=== PATIENT | female | born 1995 | race Caucasian/White ===

== ENCOUNTER 2017-06-04 10:02 | Emergency (ER) | payer BC ==
[2017-06-04] MEDS ORDERED: ONDANSETRON 4 MG/2 ML VIAL IVP STA (10:27)
[2017-06-04] MEDS ORDERED: ACETAMINOPHEN IV (For NPO) 1,000 MG in EMPTY BAG 1 BAG IVPB STA (10:27)
[2017-06-04] MEDS ORDERED: HYDROmorphone 0.5 MG/0.5 ML SYRINGE IVP STA (10:27)
[2017-06-04] MEDS ORDERED: SODIUM CHLORIDE 0.9% 1,000 ML IV STA ×2 (10:27)
--- NOTE | 2017-06-04 10:34 | ED ---
General Adult HPI - General Chief complaint: Abdominal Pain Stated complaint: CHEST PAIN Time Seen by Provider: 06/04/17 10:21 Source: patient, family, RN notes reviewed Mode of arrival: wheelchair Limitations: no limitations - History of Present Illness Initial comments: Patient 21-year-old female who presents emergency room today with chief complaint of right-sided abdominal pain radiating up into the chest. She states it started last night approximately 7 PM. Patient does admit that it is not better or worse with anything. Patient states that pain was worse this morning went to urgent care who sent her here to the emergency room. She denies any other complaints or symptoms. Patient denies any recent shortness of breath, back pain, numbness or tingling, dysuria or hematuria, constipation or diarrhea, headaches or visual changes, or any other complaints. - Related Data Previous Rx's Medication Instructions Recorded Ibuprofen [Motrin] 800 mg PO Q6HR #30 tab 06/04/17 Orphenadrine [Norflex] 100 mg PO Q12H #20 tablet.er 06/04/17 Allergies Allergy/AdvReac Type Severity Reaction Status Date / Time amoxicillin Allergy Anaphylaxis Verified 06/04/17 12:26 egg Allergy Nausea & Verified 06/04/17 12:26 Vomiting Penicillins Allergy Anaphylaxis Verified 06/04/17 12:26 Review of Systems ROS Statement: Those systems with pertinent positive or pertinent negative responses have been documented in the HPI. ROS Other: All systems not noted in ROS Statement are negative. Past Medical History Past Medical History: No Reported History History of Any Multi-Drug Resistant Organisms: None Reported Past Surgical History: No Surgical Hx Reported Past Psychological History: No Psychological Hx Reported Smoking Status: Current every day smoker Past Alcohol Use History: None Reported Past Drug Use History: None Reported General Exam - General Exam Comments Initial Comments: General: The patient is awake and alert, in mild distress Eye: Pupils are equal, round and reactive to light, extra-ocular movements are intact. No nystagmus. There is normal conjunctiva bilaterally. No signs of icterus. Ears, nose, mouth and throat: There are moist mucous membranes and no oral lesions. Neck: The neck is supple, there is no tenderness or JVD. Cardiovascular: There is a regular rate and rhythm. No murmur, rub or gallop is appreciated. Respiratory: Lungs are clear to auscultation, respirations are non-labored, breath sounds are equal. No wheezes, stridor, rales, or rhonchi. Gastrointestinal: Normal appearance of the abdomen. Normal bowel sounds. Abdomen soft on palpation. She does have tenderness right upper quadrant. No rebound tenderness. No guarding. No CVA tenderness. Musculoskeletal: Normal ROM, no tenderness. Strength 5/5. Sensation intact. Pulses equal bilaterally 2+. Neurological: A&O x 3. CN II-XII intact, There are no obvious motor or sensory deficits. Coordination appears grossly intact. Speech is normal. Skin: Skin is warm and dry and no rashes or lesions are noted. Psychiatric: Cooperative, appropriate mood & affect, normal judgment. Limitations: no limitations Course Vital Signs 06/04/17 06/04/17 10:13 13:12 Temperature 100.2 F H 97.9 F Pulse Rate 100 62 Respiratory 20 16 Rate Blood Pressure 128/81 105/51 O2 Sat by Pulse 96 95 Oximetry EKG Findings - EKG Comments: EKG Findings:: EKG performed at 1111: Shows normal sinus rhythm at 82 bpm. IN interval 132. QRS 86. QT/QTC forced 412/481. No acute ST changes. Medical Decision Making - Medical Decision Making [facility] and seen by attending physician Dr. Mcbride. Patient's labs been reviewed are unremarkable. Negative d-dimer. Negative cardiac enzymes. Patient's ultrasound of the upper quadrant shows no evidence of cholelithiasis or cholecystitis. Patient's chest x-rays negative. Patient's pain is reproduced movements and palpation. No other symptoms other than pain. Was discussed about possible musculoskeletal. Patient given possible x-ray here in the emergency room feeling well and would like to be discharged home at this time. - Lab Data Result diagrams: 06/04/17 10:54 06/04/17 10:54 Lab Results 06/04/17 06/04/17 06/04/17 Range/Units 10:54 10:54 10:54 WBC 9.5 (3.8-10.6) k/uL RBC 5.09 (3.80-5.40) m/uL Hgb 15.8 (11.4-16.0) gm/dL Hct 46.0 (34.0-46.0) % MCV 90.3 (80.0-100.0) fL MCH 31.0 (25.0-35.0) pg MCHC 34.3 (31.0-37.0) g/dL RDW 13.0 (11.5-15.5) % Plt Count 171 (150-450) k/uL Neutrophils % 77 % Lymphocytes % 13 % Monocytes % 6 % Eosinophils % 2 % Basophils % 0 % Neutrophils # 7.3 (1.3-7.7) k/uL Lymphocytes # 1.3 (1.0-4.8) k/uL Monocytes # 0.5 (0-1.0) k/uL Eosinophils # 0.2 (0-0.7) k/uL Basophils # 0.0 (0-0.2) k/uL PT 10.4 (9.0-12.0) sec INR 1.0 (<1.2) APTT 28.1 (22.0-30.0) sec D-Dimer (<0.60) mg/L FEU Sodium 141 (137-145) mmol/L Potassium 4.2 (3.5-5.1) mmol/L Chloride 106 (98-107) mmol/L Carbon Dioxide 25 (22-30) mmol/L Anion Gap 10 mmol/L BUN 12 (7-17) mg/dL Creatinine 0.79 (0.52-1.04) mg/dL Est GFR (MDRD) Af Amer >60 (>60 ml/min/1.73 sqM) Est GFR (MDRD) Non-Af >60 (>60 ml/min/1.73 sqM) Glucose 95 (74-99) mg/dL Plasma Lactic Acid Serafin (0.7-2.0) mmol/L Calcium 9.5 (8.4-10.2) mg/dL Total Bilirubin 0.7 (0.2-1.3) mg/dL AST 20 (14-36) U/L ALT 36 (9-52) U/L Alkaline Phosphatase 51 (38-126) U/L Troponin I (0.000-0.034) ng/mL Total Protein 7.0 (6.3-8.2) g/dL Albumin 4.2 (3.5-5.0) g/dL Amylase <30 L (30-110) U/L Lipase 72 (23-300) U/L Urine Color Urine Appearance (Clear) Urine pH (5.0-8.0) Ur Specific [place] (1.001-1.035) Urine Protein (Negative) Urine Glucose (UA) (Negative) Urine Ketones (Negative) Urine Blood (Negative) Urine Nitrite (Negative) Urine Bilirubin (Negative) Urine Urobilinogen (<2.0) mg/dL Ur Leukocyte Esterase (Negative) Urine RBC (0-5) /hpf Urine WBC (0-5) /hpf Ur Squamous Epith Cells (0-4) /hpf Urine Bacteria (None) /hpf Hyaline Casts (0-2) /lpf Urine Mucus (None) /hpf Urine HCG, Qual (Not Detectd) 06/04/17 06/04/17 06/04/17 Range/Units 10:54 10:54 10:54 WBC (3.8-10.6) k/uL RBC (3.80-5.40) m/uL Hgb (11.4-16.0) gm/dL Hct (34.0-46.0) % MCV (80.0-100.0) fL MCH (25.0-35.0) pg MCHC (31.0-37.0) g/dL RDW (11.5-15.5) % Plt Count (150-450) k/uL Neutrophils % % Lymphocytes % % Monocytes % % Eosinophils % % Basophils % % Neutrophils # (1.3-7.7) k/uL Lymphocytes # (1.0-4.8) k/uL Monocytes # (0-1.0) k/uL Eosinophils # (0-0.7) k/uL Basophils # (0-0.2) k/uL PT (9.0-12.0) sec INR (<1.2) APTT (22.0-30.0) sec D-Dimer 0.46 (<0.60) mg/L FEU Sodium (137-145) mmol/L Potassium (3.5-5.1) mmol/L Chloride (98-107) mmol/L Carbon Dioxide (22-30) mmol/L Anion Gap mmol/L BUN (7-17) mg/dL Creatinine (0.52-1.04) mg/dL Est GFR (MDRD) Af Amer (>60 ml/min/1.73 sqM) Est GFR (MDRD) Non-Af (>60 ml/min/1.73 sqM) Glucose (74-99) mg/dL Plasma Lactic Acid Serafin 0.8 (0.7-2.0) mmol/L Calcium (8.4-10.2) mg/dL Total Bilirubin (0.2-1.3) mg/dL AST (14-36) U/L ALT (9-52) U/L Alkaline Phosphatase (38-126) U/L Troponin I 0.029 (0.000-0.034) ng/mL Total Protein (6.3-8.2) g/dL Albumin (3.5-5.0) g/dL Amylase (30-110) U/L Lipase (23-300) U/L Urine Color Urine Appearance (Clear) Urine pH (5.0-8.0) Ur Specific [place] (1.001-1.035) Urine Protein (Negative) Urine Glucose (UA) (Negative) Urine Ketones (Negative) Urine Blood (Negative) Urine Nitrite (Negative) Urine Bilirubin (Negative) Urine Urobilinogen (<2.0) mg/dL Ur Leukocyte Esterase (Negative) Urine RBC (0-5) /hpf Urine WBC (0-5) /hpf Ur Squamous Epith Cells (0-4) /hpf Urine Bacteria (None) /hpf Hyaline Casts (0-2) /lpf Urine Mucus (None) /hpf Urine HCG, Qual (Not Detectd) 06/04/17 06/04/17 Range/Units 12:16 12:16 WBC (3.8-10.6) k/uL RBC (3.80-5.40) m/uL Hgb (11.4-16.0) gm/dL Hct (34.0-46.0) % MCV (80.0-100.0) fL MCH (25.0-35.0) pg MCHC (31.0-37.0) g/dL RDW (11.5-15.5) % Plt Count (150-450) k/uL Neutrophils % % Lymphocytes % % Monocytes % % Eosinophils % % Basophils % % Neutrophils # (1.3-7.7) k/uL Lymphocytes # (1.0-4.8) k/uL Monocytes # (0-1.0) k/uL Eosinophils # (0-0.7) k/uL Basophils # (0-0.2) k/uL PT (9.0-12.0) sec INR (<1.2) APTT (22.0-30.0) sec D-Dimer (<0.60) mg/L FEU Sodium (137-145) mmol/L Potassium (3.5-5.1) mmol/L Chloride (98-107) mmol/L Carbon Dioxide (22-30) mmol/L Anion Gap mmol/L BUN (7-17) mg/dL Creatinine (0.52-1.04) mg/dL Est GFR (MDRD) Af Amer (>60 ml/min/1.73 sqM) Est GFR (MDRD) Non-Af (>60 ml/min/1.73 sqM) Glucose (74-99) mg/dL Plasma Lactic Acid Serafin (0.7-2.0) mmol/L Calcium (8.4-10.2) mg/dL Total Bilirubin (0.2-1.3) mg/dL AST (14-36) U/L ALT (9-52) U/L Alkaline Phosphatase (38-126) U/L Troponin I (0.000-0.034) ng/mL Total Protein (6.3-8.2) g/dL Albumin (3.5-5.0) g/dL Amylase (30-110) U/L Lipase (23-300) U/L Urine Color Yellow Urine Appearance Cloudy H (Clear) Urine pH 5.5 (5.0-8.0) Ur Specific [place] 1.027 (1.001-1.035) Urine Protein Trace H (Negative) Urine Glucose (UA) Negative (Negative) Urine Ketones Negative (Negative) Urine Blood Negative (Negative) Urine Nitrite Negative (Negative) Urine Bilirubin Negative (Negative) Urine Urobilinogen <2.0 (<2.0) mg/dL Ur Leukocyte Esterase Moderate H (Negative) Urine RBC 3 (0-5) /hpf Urine WBC 6 H (0-5) /hpf Ur Squamous Epith Cells 23 H (0-4) /hpf Urine Bacteria Rare H (None) /hpf Hyaline Casts 3 H (0-2) /lpf Urine Mucus Occasional H (None) /hpf Urine HCG, Qual Not Detected (Not Detectd) Disposition Clinical Impression: Muscle strain Disposition: HOME SELF-CARE Condition: Good Instructions: Muscle Strain (ED) Additional Instructions: Please use medication as discussed. Please follow-up with family doctor in the next 2 days of symptoms have not improved. Please return to emergency room if the symptoms increase or worsen or for any other concerns. Prescriptions: Ibuprofen [Motrin] 800 mg PO Q6HR #30 tab Orphenadrine [Norflex] 100 mg PO Q12H #20 tablet.er Referrals: Reed Chiang DO [Primary Care Provider] - 1-2 days Time of Disposition: 14:41
[2017-06-04 11:20] LABS: Basophils % (A) 0 %; CH 31.2; CHCM 34.6; Eosinophils # (A) 0.2 k/uL (0-0.7); Eosinophils % (A) 2 %; HDW 2.44; HGB 15.8 gm/dL (11.4-16.0); Luc # (Auto) 0.19; Luc % (Auto) 2; Lymphocytes # (A) 1.3 k/uL (1.0-4.8); Lymphocytes % (A) 13 %; MCHC 34.3 g/dL (31.0-37.0); MCV 90.3 fL (80.0-100.0); Mean Platelet Volume 7.7; Monocytes # (A) 0.5 k/uL (0-1.0); Monocytes % (A) 6 %; Neutrophils # (A) 7.3 k/uL (1.3-7.7); Neutrophils % (A) 77 %; RBC 5.09 m/uL (3.80-5.40); WBC 9.5 k/uL (3.8-10.6); WBC (Perox) 9.46
[2017-06-04 11:27] LABS: Partial Thromboplastin Time 28.1 sec (22.0-30.0); Prothrombin Time 10.4 sec (9.0-12.0)
[2017-06-04 11:33] LABS: ALT 36 U/L (9-52); AST 20 U/L (14-36); Alkaline Phosphatase 51 U/L (38-126); Amylase <30 U/L (30-110); Anion Gap 10 mmol/L; Blood Urea Nitrogen 12 mg/dL (7-17); Calcium 9.5 mg/dL (8.4-10.2); Carbon Dioxide 25 mmol/L (22-30); Chloride 106 mmol/L (98-107); Glucose 95 mg/dL (74-99); Non-African American GFR(MDRD) >60 (>60 ml/min/1.73 sqM); Potassium 4.2 mmol/L (3.5-5.1); Sodium 141 mmol/L (137-145); Total Bilirubin 0.7 mg/dL (0.2-1.3)
[2017-06-04 12:35] LABS: Appearance,Urine Cloudy (Clear); Bacteria,Urine Rare /hpf; Bilirubin,Urine Negative (Negative); Glucose,Urine (UA) Negative (Negative); Ketones,Urine Negative (Negative); Leukocyte Esterase,Urine Moderate (Negative); Mucus,Urine Occasional /hpf; Nitrite,Urine Negative (Negative); PH, Urine 5.5 (5.0-8.0); Particle Count 13313; Protein,Urine Trace (Negative); RBC,Urine 3 /hpf (0-5); Specific Gravity,Urine 1.027 (1.001-1.035); Squamous Epithelial Cell,Urine 23 /hpf (0-4); UA Billing (MACRO vs. MICRO) MICRO; Urobilinogen,Urine <2.0 mg/dL (<2.0); WBC,Urine 6 /hpf (0-5)
--- NOTE | 2017-06-04 12:35 | US ---
EXAMINATION TYPE: US abdomen limited DATE OF EXAM: 06/04/2017 COMPARISON: NONE CLINICAL HISTORY: 21-year-old female RUQ Pain. TECHNIQUE: Multiple sonographic images of the right upper quadrant are obtained. FINDINGS: ROLLER LEVELER NOTES: Limited due to patient tolerance and ability to hold breath due to pain. EXAM MEASUREMENTS: Liver Length: 17.3 cm Gallbladder Wall: 0.2 cm CBD: 0.3 cm Right Kidney: 10.9 x 3.7 x 4.0 cm Pancreas: Suboptimal visualization of the pancreatic head and tail secondary to shadowing from bowel gas. Visualized portions appear within normal limits. Liver: Measures upper limits of normal Gallbladder: Junctional fold noted. No abnormal gallbladder distention, wall thickening, pericholecy stic fluid, or shadowing calculi. Evidence for sonographic Starkey's sign: No CBD: wnl Right Kidney: No hydronephrosis. IMPRESSION: 1. Liver measures at the upper limits of normal in size. 2. No evidence for cholelithiasis, acute cholecystitis, or biliary ductal dilatation. 3. The construction cost estimator notes exam limitations due to patient's ability to hold their breath and tolerate transducer pressure due to pain.
--- NOTE | 2017-06-04 12:54 | XR ---
EXAMINATION TYPE: XR chest 2V DATE OF EXAM: 06/04/2017 COMPARISON: 07/13/2004 HISTORY: 21-year-old female with left-sided chest pain TECHNIQUE: PA and lateral views FINDINGS: The cardiomediastinal silhouette, aorta, and pulmonary vasculature are within normal limits. Lungs an d pleural spaces are clear. IMPRESSION: No acute cardiopulmonary process.
[2017-06-04] MEDS ORDERED: KETOROLAC 30 MG/ML 1 ML VIAL IVP STA (13:02)
[2017-06-04 13:13] VITALS: RESP 16; TEMP 97.9
[2017-06-04] MEDS ORDERED: ORPHENADRINE 30 MG/ML 2 ML VIAL IVP STA (13:54)
[2017-06-04 14:54] VITALS: BP 115/65; PULSE 69
== END 2017-06-04 14:52 | disposition home or self-care (01) ==
LOC: EC 10:02
DX: S39.011A Strain of muscle, fascia and tendon of abdomen, initial encounter (principal); R07.9 Chest pain, unspecified; F17.200 Nicotine dependence, unspecified, uncomplicated; Z88.0 Allergy status to penicillin; Z91.012 Allergy to eggs; X58.XXXA Exposure to other specified factors, initial encounter
CPT/HCPCS: 36415; 93005; 85379; 80053; 82150; 83605; 83690; 84484; 85025; 85610; 85730; 81001; 81025; 87040; 71020; 76705; 99284; 96365; 96375 ×4; 96361 ×4; J2360; J2405; J1885; J0131; J1170

== ENCOUNTER → 2017-09-06 | Outpatient (CLI) | payer BC ==
--- NOTE | 2017-09-06 13:35 | CT ---
EXAMINATION TYPE: CT brain w con DATE OF EXAM: 09/06/2017 COMPARISON: NONE HISTORY: 22-year-old female Headaches CT DLP: 945.50 mGycm Automated exposure control for dose reduction was used. Technique: CT scan of the head is performed with IV Contrast, patient injected with 100 mL of Omnipaq ue 300. Coronal and sagittal reconstructions performed. FINDINGS: There is no abnormal enhancing mass or midline shift identified. There is a 5 mm extra-axial area of calcification anterior left middle cranial fossa axial image 11. The foramen magnum is incompletely i luis f. Dural venous sinuses are patent. The ventricles and sulci are within normal limits in size. Th e globes are intact. There is frothy partial opacification of the left sphenoid sinus. Mastoid air ce lls are pneumatized. IMPRESSION: 1. Small 5 mm extra-axial calcification anterior left middle cranial fossa could represent a tiny men ingioma. 2. Consider further MRI evaluation. MRI could also assess the craniocervical junction and ensure appr opriate positioning of the cerebellar tonsils. 3. Otherwise, no intracranial abnormality seen. 4. Note findings that suggest acute left sphenoid sinusitis.
--- NOTE | 2017-09-06 15:45 | NM ---
Nuclear medicine hepatobiliary scan. HISTORY: Pain. DOSAGE: The patient received 8 ounces of ensure plus and 5 mCi of Technetium 99m Choletec. FINDINGS: There is normal hepatic extraction. The gallbladder is seen by 15 minutes. There is bilia ry to bowel clearance by 20 minutes. Ejection fraction is 10%. IMPRESSION: 1. Low ejection fraction of 10% correlate for biliary dyskinesia.
== END | disposition home or self-care (01) ==
LOC: RADNMMAIN 12:46
PROVIDERS: ATTEND Family Medicine
DX: J98.4 Other disorders of lung (principal); R10.9 Unspecified abdominal pain
CPT/HCPCS: 70460; 78226; A9537; Q9967

== ENCOUNTER → 2017-09-22 | Outpatient (CLI) | payer BC ==
--- NOTE | 2017-09-22 23:31 | MR ---
EXAMINATION TYPE: MR brain wo con DATE OF EXAM: 09/22/2017 COMPARISON: CT 09/06/2017 HISTORY: 22-year-old female with headaches TECHNIQUE: Multiplanar, multisequence images of the brain and brainstem were acquired without IV con trast. Diffusion weighted imaging is performed. FINDINGS: No evidence for acute infarction, hemorrhage, mass effect, midline shift, herniation, effacement of b ismael cisterns, or extra-axial fluid collection. A small 6 mm area of low signal intensity on axial T2 sequence along the anterior left middle cranial fossa corresponds to the calcification seen on CT. Tiny meningioma or dystrophic calcifications are in the differential. The ventricles and sulci are age-appropriate. Major intracranial flow voids are intact. T2/FLAIR weighted sequences show no white matter signal abnormality. Midline structures demonstrate normal morphology. The craniocervical junction is normal. No cerebell ar tonsillar ectopia. Some frothy opacification layering posteriorly in the left sphenoid sinus. Globes are intact. IMPRESSION: 1. No acute intracranial abnormality seen. 2. Small 6 mm area of T2 low signal along the anterior aspect of the left middle cranial fossa corres ponds to the calcification seen on CT and could represent some nonspecific dystrophic calcification o r tiny meningioma. If MRI follow-up is performed, contrast can be utilized to assess for enhancement. 3. Continued acute left sphenoid sinus disease. 4. No evidence for cerebellar tonsillar ectopia or Chiari I malformation.
== END | disposition home or self-care (01) ==
LOC: RADMRIMAIN 13:50
PROVIDERS: ATTEND Family Medicine
DX: R93.0 Abnormal findings on diagnostic imaging of skull and head, not elsewhere classified (principal)
CPT/HCPCS: 70551

== ENCOUNTER 2017-10-26 07:13 | Day surgery (SDC) | payer BC ==
[2017-10-20 12:06] VITALS: BMI 37.5
[~2017-10-26 07:13] MED LIST: CLINDAMYCIN 900 MG in DEXTROSE 5% IN WATER 50 ML IVPB ONE; DEXAMETHASONE SOD PHOSPHATE 10 MG/ML 1 ML VIAL IV ONE; GENTAMICIN 350 MG in SODIUM CHLORIDE 0.9% 100 ML IVPB ONE; HEPARIN SODIUM,PORCINE 5,000 UNIT/ML 1 ML VIAL SQ ONE; LACTATED RINGERS 1,000 ML IV SCH; LIDOCAINE 1% 20 ML VIAL (10MG/ML) FOR IV START INTRADERMA PRN; ONDANSETRON 4 MG/2 ML VIAL IVP ONE; SCOPOLAMINE 1.5MG/72HR PATCH TRANSDERM ONE
[2017-10-26 08:15] VITALS: TEMP 98.2
[2017-10-26] MEDS ORDERED: BUPIVACAINE (PF) 0.25% 30 ML VIAL SQ ONE ×2 (08:50)
[2017-10-26] MEDS ORDERED: LIDOCAINE 1% INJ 10MG/ML (20 ML MDV) ONE (09:14)
[2017-10-26] MEDS ORDERED: ePHEDrine SULFATE/0.9% NACL/PF 50 MG/5 ML SYRINGE IV ONE (09:14)
[2017-10-26] MEDS ORDERED: PROPOFOL 10 MG/ML 20 ML VIAL IV ONE (09:14)
[2017-10-26] MEDS ORDERED: NEOSTIGMINE 1 MG/ML 10 ML VIAL ONE (09:14)
[2017-10-26] MEDS ORDERED: GLYCOPYRROLATE 0.2 MG/ML 2 ML VIAL ONE (09:14)
[2017-10-26] MEDS ORDERED: fentaNYL (PF) 50 MCG/ML 2 ML AMP ONE (09:14)
[2017-10-26] MEDS ORDERED: SUCCINYLCHOLINE CHLORIDE 100 MG/5 ML SYR IV ONE (09:14)
[2017-10-26] MEDS ORDERED: ROCURONIUM BROMIDE 10 MG/ML 10 ML VIAL IV ONE (09:14)
[2017-10-26] MEDS ORDERED: LACTATED RINGERS 1,000 ML IV ONE ×2 (10:27)
[2017-10-26] MEDS ORDERED: NALOXONE 0.4 MG/ML 1 ML VIAL IV PRN (10:35)
[2017-10-26] MEDS ORDERED: traMADol 50 MG TAB PO PRN (10:35)
--- NOTE | 2017-10-26 10:38 | P.OP ---
Date of Procedure: 10/26/17 Procedure(s) Performed: PREOPERATIVE DIAGNOSIS: Biliary dyskinesia POSTOPERATIVE DIAGNOSIS: Same PROCEDURE: Laparoscopic cholecystectomy SURGEON: Chavez EBL: Minimal see anesthesia record ANESTHESIA: Gen. COMPLICATIONS: None OPERATIVE PROCEDURE: The patient was brought and placed on the operating room table in the supine position. The patient was placed under general anesthesia at that time. The abdomen was prepped and draped in the usual sterile fashion. A small vertical infraumbilical incision was made. The fascia was grasped with the Kristopher forceps. The fascia was retracted anteriorly. The Veress needle was advanced into the peritoneal cavity. The saline drop test was normal. Insufflation took place up to 15 mmHg. A 5 mm optical trocar was advanced and the peritoneal cavity. 2 additional 5 mm trochars were placed in the right upper quadrant under direct visualization. A 10 mm trocar was advanced into the epigastric incision site. The gallbladder was retracted superiorly and laterally. The peritoneum overlying the infundibulum was bluntly dissected. The patient's cystic duct was visualized. The junction between the cystic duct common and hepatic duct was identified. The cystic duct was then divided after placement of 2 10 mm clips on the patient's side and one on the specimen side. As I inspected the clips on the cystic duct I noticed that the clip on the specimen side had crossed and appeared loose. This was removed. At that time an additional clip was placed on the patient's side of the existing clip. There was no evidence of any tear in the cystic duct from the crossed clip. The cystic artery was identified and clipped as well. A small vessel was seen along the gallbladder fossa and clipped as well. The gallbladder was then removed from the liver bed using electrocautery. The gallbladder was then removed from the epigastric trocar site with an Endo Catch bag. The gallbladder fossa was irrigated with saline. There was no evidence of any bleeding or biliary drainage seen. The trochars were then removed. The fascia at the 10 millimeter site was closed using a figure-of- eight 0 Vicryl stitch. The skin at all 4 sites was closed using a 4-0 Monocryl stitch. At the end of this procedure the sponge and needle counts were correct. DISPOSITION: Stable to the recovery room
[2017-10-26] MEDS: MORPHINE SULFATE 2 MG/ML SYRINGE IV PRN ×2 (10:47→10:52)
[2017-10-26] MEDS ORDERED: ONDANSETRON 4 MG/2 ML VIAL IVP ONE (11:28)
[2017-10-26] MEDS ORDERED: traMADol 50 MG TAB PO ONE (12:40)
[2017-10-26 13:48] VITALS: BP 108/66; PULSE 70; RESP 18
== END 2017-10-26 13:58 | disposition home or self-care (01) ==
LOC: OR 07:13
PROVIDERS: ATTEND Surgery
DX: K81.1 Chronic cholecystitis (principal); D49.7 Neoplasm of unspecified behavior of endocrine glands and other parts of nervous system; F41.9 Anxiety disorder, unspecified; Z79.2 Long term (current) use of antibiotics; Z79.3 Long term (current) use of hormonal contraceptives; Z79.891 Long term (current) use of opiate analgesic; Z88.0 Allergy status to penicillin; Z88.2 Allergy status to sulfonamides; Z88.1 Allergy status to other antibiotic agents; Z91.012 Allergy to eggs; Z91.040 Latex allergy status; F17.210 Nicotine dependence, cigarettes, uncomplicated
CPT/HCPCS: 81025; 88304; 47562; J1644; J1100; J2710; J2405; J2001; J3010; J1580; J2270; J0330; J2704

== ENCOUNTER 2018-02-28 11:06 | Day surgery (SDC) | payer BC ==
[2018-02-23 15:15] VITALS: BMI 34.9
[~2018-02-28 11:06] MED LIST changes: -CLINDAMYCIN 900 MG in DEXTROSE 5% IN WATER 50 ML IVPB ONE; -DEXAMETHASONE SOD PHOSPHATE 10 MG/ML 1 ML VIAL IV ONE; -GENTAMICIN 350 MG in SODIUM CHLORIDE 0.9% 100 ML IVPB ONE; -HEPARIN SODIUM,PORCINE 5,000 UNIT/ML 1 ML VIAL SQ ONE; -ONDANSETRON 4 MG/2 ML VIAL IVP ONE; -SCOPOLAMINE 1.5MG/72HR PATCH TRANSDERM ONE
[2018-02-28 11:53] VITALS: RESP 16; TEMP 98.6
[2018-02-28] MEDS ORDERED: PROPOFOL 10 MG/ML 20 ML VIAL IV ONE (12:26)
[2018-02-28] MEDS ORDERED: GLYCOPYRROLATE 0.2 MG/ML 2 ML VIAL ONE (12:26)
[2018-02-28] MEDS ORDERED: LIDOCAINE 1% INJ 10MG/ML (20 ML MDV) ONE (12:26)
--- NOTE | 2018-02-28 13:15 | P.PCN ---
Date of Procedure: 02/28/18 Procedure(s) Performed: Procedures: 1. Esophagogastroduodenoscopy and biopsy. 2. Colonoscopy and biopsy. Preoperative diagnosis: Chronic diarrhea. Postoperative diagnosis: 1. Small sliding hiatal hernia with no definite esophagitis or complicated reflux disease. 2. Mild antral gastritis. 3. Normal colon exam with no evidence of inflammatory bowel disease. 4. Could not intubate the ileocecal valve to examine the terminal ileum, but biopsy was obtained blindly from the terminal ileum. 5. Biopsies obtained from the colon randomly as well as the duodenum, antrum, esophagus and terminal ileum. Preparation: HalfLytely prep. Sedation: Was provided by anesthesia. Brief clinical history: The patient is a 22-year-old female who is referred for this evaluation because of diarrhea since October of this year. This started around the time of her gallbladder surgery. She has no extraintestinal manifestations of inflammatory bowel disease or bleeding. This evaluation is to rule out inflammatory bowel disease, celiac disease or other pathology. Procedure: With the patient on her left lateral decubitus position and after informed consent and adequate sedation, I passed the Olympus-GIF 160 video upper endoscope through the cricopharyngeus down the esophagus. There was a small sliding hiatal hernia but no obvious esophagitis or complicated reflux disease. The endoscope was then passed into the stomach which was insufflated with air and inspected in detail including the retroflex view in the cardia. There was some mottling and erythema in the antrum but no ulcers or erosions. Pyloric channel, duodenal bulb, post bulbar area and descending duodenum appeared within normal limits. I obtained biopsies from the duodenum, antrum and esophagus then the endoscope was withdrawn and I proceeded with the colonoscopy. Perianal area did not show any fissures or fistulas. There were no masses felt on digital rectal examination. The Olympus CFQ 160L video colonoscope was then inserted in the rectum in the usual fashion and advanced to the cecum. I was not able to intubate the ileocecal valve but I was able to obtain a blind biopsy from the terminal ileum. The colon, otherwise, appeared healthy with no edema, erythema, friability, ulceration, exudation or spontaneous bleeding. I obtained multiple biopsies randomly from the colon then I retroflexed the endoscope in the rectum before the endoscope was withdrawn. The patient tolerated the procedure well. Plan: The patient was reassured and I discussed with her family. Will await biopsy results. She will follow-up with you as planned and I will be happy to see in the office as outpatient if her symptoms persist.
[2018-02-28 13:26] VITALS: BP 115/75; PULSE 74
== END 2018-02-28 14:05 | disposition home or self-care (01) ==
LOC: ORWHC2ENDO 11:06
DX: K29.50 Unspecified chronic gastritis without bleeding (principal); K52.9 Noninfective gastroenteritis and colitis, unspecified; F17.210 Nicotine dependence, cigarettes, uncomplicated; K20.9 Esophagitis, unspecified; K44.9 Diaphragmatic hernia without obstruction or gangrene; Z88.0 Allergy status to penicillin; Z88.5 Allergy status to narcotic agent; Z88.2 Allergy status to sulfonamides; Z91.040 Latex allergy status
CPT/HCPCS: 81025; 88305; 45380; 43239; J2001; J2704

== ENCOUNTER 2018-07-27 18:32 | Emergency (ER) | payer BC ==
[2018-07-27 18:40] VITALS: TEMP 98.8
[2018-07-27] MEDS ORDERED: KETOROLAC 60 MG/2 ML VIAL IM STA (20:05)
--- NOTE | 2018-07-27 20:21 | XR ---
EXAMINATION TYPE: XR Hip Complete LT DATE OF EXAM: 07/27/2018 COMPARISON: NONE HISTORY: Left hip pain TECHNIQUE: 2 views FINDINGS: I see no fracture nor dislocation. Hip joint space is normal. There is no sign of hip dyspl kris. IMPRESSION: Negative left hip exam.
--- NOTE | 2018-07-27 20:22 | XR ---
EXAMINATION TYPE: XR ribs bilateral DATE OF EXAM: 07/27/2018 COMPARISON: NONE HISTORY: Rib pain TECHNIQUE: 8 views FINDINGS: The lungs are clear of infiltrate. There is no evidence of pleural effusion or pneumothorax . Heart and mediastinum appear normal. I see no rib fracture. IMPRESSION: Normal bilateral rib exam.
--- NOTE | 2018-07-27 20:24 | XR ---
EXAMINATION TYPE: XR lumbar spine 2 or 3V DATE OF EXAM: 07/27/2018 COMPARISON: NONE HISTORY: Back pain TECHNIQUE: 3 views FINDINGS: Lumbar vertebra have normal spacing and alignment. Posterior elements are intact. Sacroilia c joints appear normal. IMPRESSION: Normal lumbar spine exam.
--- NOTE | 2018-07-27 20:42 | ED ---
General Adult HPI - General Chief complaint: Fall Stated complaint: fall, back pain Source: patient, RN notes reviewed, old records reviewed Mode of arrival: ambulatory Limitations: no limitations - History of Present Illness Initial comments: 23-year-old female patient with no pertinent past history presents to ED after sustaining a mechanical fall last night. Patient primary complaint is left hip pain, left rib pain, left paralumbar back pain. Patient states that she was walking down the stairs on her front porch gesture when she slipped on ice and fell down approximately 2 stairs onto her gluteal region. Patient states that she fell on the flat aspect of the cement, did not fall on stairs. Patient fell primarily on her left buttock, as well as her left flank. Patient denies any trauma to head or neck. Patient denies any loss of consciousness or use of blood thinners. Patient denies any use of alcohol during this fall. Patient presents to ED today because she was having continued pain and wanted evaluation to rule out any fractures. Patient is ambulatory, has a mild amount of pain in her left hip while she ambulates. Patient denies any lower extremity weakness, paresthesias, loss of bowel or bladder control, IV drug use , fevers or chills. Patient denies any saddle anesthesia. Patient denies any chest pain, shortness of breath, abdominal pain, nausea vomiting diarrhea. Pt denies any new onset paresthesias or pain radiating down legs. Pt states that she cannot be because she is not sexually active. Systemic: Pt denies fatigue, myalgia, fever/chills, rash. Pt denies weakness, night sweats, weight loss. Neuro: Pt denies headache, visual disturbances, syncope or pre-syncope. HEENT: Pt denies ocular discharge or irritation, otalgia, rhinorrhea, pharyngitis or notable lymphadenopathy. Cardiopulmonary: Pt denies chest pain, SOB, heart palpitations, dyspnea on exertion. Abdominal/GI: Pt denies abdominal pain, n/v/d. : Pt denies dysuria, burning w/ urination, frequency/urgency. Denies new onset urinary or bowel incontinence. MSK: Pt denies myalgia, loss of strength or function in extremities. Neuro: Pt denies new onset weakness, paresthesias. - Related Data Previous Rx's Medication Instructions Recorded Ibuprofen [Motrin] 600 mg PO Q6HR PRN #40 day 07/27/18 Allergies Allergy/AdvReac Type Severity Reaction Status Date / Time amoxicillin Allergy Anaphylaxis Verified 07/27/18 18:36 egg Allergy Nausea & Verified 07/27/18 18:36 Vomiting Latex, Natural Rubber Allergy Anaphylaxis Verified 07/27/18 18:36 Penicillins Allergy Anaphylaxis Verified 07/27/18 18:36 sulfamethoxazole Allergy Swelling Verified 07/27/18 18:36 [From Bactrim] trimethoprim [From Bactrim] Allergy Swelling Verified 07/27/18 18:36 vancomycin Allergy Swelling, Verified 07/27/18 18:36 ITCHING acetaminophen [From Vicodin] AdvReac Itching Verified 07/27/18 18:36 hydrocodone [From Vicodin] AdvReac Itching Verified 07/27/18 18:36 Review of Systems ROS Statement: Those systems with pertinent positive or pertinent negative responses have been documented in the HPI. ROS Other: All systems not noted in ROS Statement are negative. Past Medical History Past Medical History: Neurologic Disorder, Skin Disorder Additional Past Medical History / Comment(s): MIGRAINE Headaches. PSORIASIS. IBS ? History of Any Multi-Drug Resistant Organisms: None Reported Past Surgical History: Cholecystectomy Additional Past Surgical History / Comment(s): [place] teeth removal. I&D LT GROIN ABSCESS. Past Anesthesia/Blood Transfusion Reactions: No Reported Reaction, Family History of Problems w/ Anesthesia Additional Past Anesthesia/Blood Transfusion Reaction / Comment(s): FATHER AWAKENED DURING SURG Past Psychological History: Anxiety, Depression Smoking Status: Current every day smoker Past Alcohol Use History: None Reported Past Drug Use History: None Reported - Past Family History Father Family Medical History: Cancer Additional Family Medical History / Comment(s): Patient states father passed of Brain CA with assosiated seizures/stroke. Mother Family Medical History: Hypertension Sister(s) Family Medical History: Rheumatoid Arthritis (RA), Thyroid Disorder Brother(s) History Unknown: Yes General Exam - General Exam Comments Initial Comments: Constitutional: NAD, AOX3, Pt has pleasant affect. HEENT: NC/AT, trachea midline, neck supple, no lymphadenopathy. Posterior pharynx non erythematous, without exudates. External ears appear normal, without discharge. Mucous membranes moist. Eyes PERRLA, EOM intact. There is no scleral icterus. No pallor noted. Cardiopulmonary: RRR, no murmurs, rubs or gallops, no JVD noted. Lungs CTAB in anterior and posterior daley. No peripheral edema. Abdominal exam: Abdomen soft and non-distended. Abdomen non-tender to palpation in all 4 quadrants. Bowel sounds active in LLQ. No hepatosplenomegaly. No ecchymosis Neuro: CN II-XII grossly intact. No nuchal rigidity. MSK: No midline cervical, thoracic or lumbar tenderness. No para cervical or thoracic tenderness. Mild amount of L paralumbar tenderness. Pt lower extremities are nontender to palpation. Pt hips nontender to palpation. Pt L ribs are mildly tender to palpation. Pt quadriceps and psoas strength 5/5. Achillies and patellar reflex 2/4 bilaterally. No posterior calf tenderness bilaterally, homans sign negative bilaterally. Posterior tibialis and radial pulse +2 bilaterally. Sensation intact in upper and lower extremities. Full active ROM in upper and lower extremities, 5/5 stregnth. Pt is ambulatory without difficulty, heel to toe walking intact. Limitations: no limitations Course Vital Signs 07/27/18 07/27/18 18:36 20:47 Temperature 98.8 F Pulse Rate 83 68 Respiratory 18 16 Rate Blood Pressure 147/93 113/76 O2 Sat by Pulse 98 97 Oximetry Medical Decision Making - Medical Decision Making 23-year-old female patient with no pertinent past history presents to ED after sustaining a mechanical fall last night. Patient primary complaint is left hip pain, left rib pain, left paralumbar back pain. Pt VSS, afebrile. Physical exam displayed L ribs mildly tender to palpation, L paralumbar region mildly tender to palpation. Pt has full active ROM of upper and lower extremities, neurovascularly intact. Plain films of lumbar spine, L hip, ribs bilaterally did not display acute pathology. Pt diagnosed with contusion. Pt improved in ED with toradol. Pt to f/u with PCP in 1-2 days. Pt to return to ED if new s/sx develop or if condition worsens in anyway. Case discussed in depth with Dr. Carmona. Disposition Clinical Impression: Contusion Disposition: HOME SELF-CARE Condition: Stable Instructions: Contusion in Adults (ED) Additional Instructions: Patient to adhere to previously discussed treatment plan and will take medication(s) as directed. Patient to follow up with PCP in 1-2 days. Patient to return to ED if symptoms do not improve. Prescriptions: Ibuprofen [Motrin] 600 mg PO Q6HR PRN #40 day PRN Reason: Pain Is patient prescribed a controlled substance at d/c from ED?: No Referrals: Reed Chiang DO [Primary Care Provider] - 1-2 days Time of Disposition: 20:42
[2018-07-27 20:49] VITALS: BP 113/76; PULSE 68; RESP 16
--- NOTE | 2018-07-28 05:50 | CDI ---
Dear Emre Carmona MD: Please do addendum site of the contusion. Thank you, Bety Joseph, Apartment Hotel Manager. If you have any questions, please contact Labor Trainer at [phone]. [facility]
== END 2018-07-27 20:48 | disposition home or self-care (01) ==
LOC: EC 18:32
DX: S70.02XA Contusion of left hip, initial encounter (principal); S20.212A Contusion of left front wall of thorax, initial encounter; S30.0XXA Contusion of lower back and pelvis, initial encounter; F17.200 Nicotine dependence, unspecified, uncomplicated; Z88.0 Allergy status to penicillin; Z88.1 Allergy status to other antibiotic agents; Z88.2 Allergy status to sulfonamides; Z88.5 Allergy status to narcotic agent; Z88.6 Allergy status to analgesic agent; Z91.012 Allergy to eggs; Z91.040 Latex allergy status; W00.0XXA Fall on same level due to ice and snow, initial encounter; W10.9XXA Fall (on) (from) unspecified stairs and steps, initial encounter; Y93.01 Activity, walking, marching and hiking; Y92.89 Other specified places as the place of occurrence of the external cause
CPT/HCPCS: 99284; 96372; 71110; 72100; 73502; J1885

== ENCOUNTER 2019-01-21 15:42 | Emergency (ER) | payer BC ==
[2019-01-21 15:53] VITALS: BP 135/86; PULSE 84; RESP 18; TEMP 98.4
--- NOTE | 2019-01-21 16:15 | ED ---
General Adult HPI - General Chief complaint: Extremity Injury, Lower Stated complaint: Insect bite Time Seen by Provider: 01/21/19 15:53 Source: patient, family, RN notes reviewed Mode of arrival: ambulatory Limitations: no limitations - History of Present Illness Initial comments: 23-year-old female presents to the emergency department for a chief complaint of possible bug bite over the right anterior knee. Patient states she thought she had a bug bite on her right knee 2 days ago. States that since that time she has had spreading redness from the area. Denies fevers or chills. Denies any significant pain with flexion of the right knee. Denies difficulty walking. Denies any drainage from the knee. States she did have some scratches on her right knee from running into a wall.Patient has no other complaints at this time including shortness of breath, chest pain, abdominal pain, nausea or vomiting, headache, or visual changes. - Related Data Previous Rx's Medication Instructions Recorded Ibuprofen [Motrin] 600 mg PO Q6HR PRN #40 day 07/27/18 Clindamycin [Cleocin] 450 mg PO Q8H 7 Days capsule 01/21/19 Allergies Allergy/AdvReac Type Severity Reaction Status Date / Time amoxicillin Allergy Anaphylaxis Verified 01/21/19 15:49 egg Allergy Nausea & Verified 01/21/19 15:49 Vomiting Latex, Natural Rubber Allergy Anaphylaxis Verified 01/21/19 15:49 Penicillins Allergy Anaphylaxis Verified 01/21/19 15:49 sulfamethoxazole Allergy Swelling Verified 01/21/19 15:49 [From Bactrim] trimethoprim [From Bactrim] Allergy Swelling Verified 01/21/19 15:49 vancomycin Allergy Swelling, Verified 01/21/19 15:49 ITCHING acetaminophen [From Vicodin] AdvReac Itching Verified 01/21/19 15:49 hydrocodone [From Vicodin] AdvReac Itching Verified 01/21/19 15:49 Review of Systems ROS Statement: Those systems with pertinent positive or pertinent negative responses have been documented in the HPI. ROS Other: All systems not noted in ROS Statement are negative. Past Medical History Past Medical History: Neurologic Disorder, Skin Disorder Additional Past Medical History / Comment(s): MIGRAINE Headaches. PSORIASIS. IBS ? History of Any Multi-Drug Resistant Organisms: None Reported Past Surgical History: Cholecystectomy Additional Past Surgical History / Comment(s): [place] teeth removal. I&D LT GROIN ABSCESS. Past Anesthesia/Blood Transfusion Reactions: No Reported Reaction, Family H istory of Problems w/ Anesthesia Additional Past Anesthesia/Blood Transfusion Reaction / Comment(s): FATHER AWAKENED DURING SURG Past Psychological History: Anxiety, Depression Smoking Status: Former smoker Past Alcohol Use History: None Reported Past Drug Use History: None Reported - Past Family History Father Family Medical History: Cancer Additional Family Medical History / Comment(s): Patient states father passed of Brain CA with assosiated seizures/stroke. Mother Family Medical History: Hypertension Sister(s) Family Medical History: Rheumatoid Arthritis (RA), Thyroid Disorder Brother(s) History Unknown: Yes General Exam Limitations: no limitations General appearance: alert, in no apparent distress Head exam: Present: atraumatic, normocephalic, normal inspection Eye exam: Present: normal appearance, PERRL, EOMI. Absent: scleral icterus, conjunctival injection, periorbital swelling ENT exam: Present: normal exam, mucous membranes moist Neck exam: Present: normal inspection, full ROM. Absent: tenderness, meningismus, lymphadenopathy Respiratory exam: Present: normal lung sounds bilaterally. Absent: respiratory distress, wheezes, rales, rhonchi, stridor Cardiovascular Exam: Present: regular rate, normal rhythm, normal heart sounds. Absent: systolic murmur, diastolic murmur, rubs, gallop, clicks Extremities exam: Present: full ROM (Full range of motion noted of the right knee), normal capillary refill (Capillary refill less than 2 seconds, PT pulse 2+ in the right lower extremity equal bilaterally.), other (There is a 6 cm x 6 cm area of erythema. Swelling area of induration noted, no fluctuance.). Absent: tenderness, pedal edema, joint swelling, calf tenderness Neurological exam: Present: alert, oriented X3, CN II-XII intact Psychiatric exam: Present: normal affect, normal mood Course Vital Signs 01/21/19 15:49 Temperature 98.4 F Pulse Rate 84 Respiratory 18 Rate Blood Pressure 135/86 O2 Sat by Pulse 99 Oximetry Medical Decision Making - Medical Decision Making 23-year-old female presents for left knee irritation. Patient states she t hought she had a bug bite on Tuesday and has had spreading redness ever since. Patient is about 6 cm x 6 cm area of erythema consistent with cellulitis over the left knee. There is maybe a small area of induration. I did attempt to incise and drain this with an 18-gauge needle however no purulent material expelled. Patient also has scratches along her knee which could have caused the cellulitis. Patient has full range of motion of the knee. At this time patient will be started on Keflex to treat cellulitis. Patient will follow-up with primary care in 1-2 days. She'll return if she has any worsening symptoms including difficulty bending the knee or fevers. Disposition Clinical Impression: Cellulitis Disposition: HOME SELF-CARE Condition: Good Instructions (If sedation given, give patient instructions): Cellulitis (ED) Additional Instructions: Please take antibiotic as directed. Please monitor spreading redness. If this redness is worsening after 2 days return to the emergency department. Return if you cannot bend your knee or have fevers or chills. Return if you have any other worsening symptoms. Otherwise follow-up with primary care in 1-2 days. Prescriptions: Clindamycin [Cleocin] 450 mg PO Q8H 7 Days capsule Is patient prescribed a controlled substance at d/c from ED?: No Referrals: Reed Chiang DO [Primary Care Provider] - 1-2 days Time of Disposition: 16:21
== END 2019-01-21 16:44 | disposition home or self-care (01) ==
LOC: EC 15:42
DX: L03.115 Cellulitis of right lower limb (principal); Z87.891 Personal history of nicotine dependence; Z88.0 Allergy status to penicillin; Z88.1 Allergy status to other antibiotic agents; Z88.2 Allergy status to sulfonamides; Z88.5 Allergy status to narcotic agent; Z88.6 Allergy status to analgesic agent; Z91.012 Allergy to eggs; Z91.040 Latex allergy status; Z98.890 Other specified postprocedural states
CPT/HCPCS: 10060; 99283

== ENCOUNTER 2019-05-07 08:25 | Emergency (ER) | payer BC, OTHER ==
[2019-05-07] MEDS ORDERED: CYCLOBENZAPRINE 10MG STARTER 3 TAB BTL PO STA (08:55)
--- NOTE | 2019-05-07 09:01 | ED ---
Back Pain HPI - General Chief Complaint: Back Pain/Injury Stated Complaint: [facility] - back injury Time Seen by Provider: 05/07/19 08:33 Source: patient, RN notes reviewed, old records reviewed Limitations: no limitations - History of Present Illness Initial Comments: Patient is a 23-year-old female, presents emergency department today for evaluation for back pain. 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 Patient reports that she is was helping a Patient ambulate, and the knees buckled. Patient reports that she quickly put the Patient on the bed, and when she did so she felt a pull and snap in her back. She complains of some right-sided back pain. Denies any saddle anesthesias or lower extremity paresthesias. - Related Data Home Medications Medication Instructions Recorded Confirmed Dextroamphetamine/Amphetamine 20 mg PO BID@0600,1200 05/07/19 05/07/19 [Adderall] Ibuprofen [Motrin Ib] 800 mg PO Q6H PRN 05/07/19 05/07/19 Previous Rx's Medication Instructions Recorded Cyclobenzaprine [Flexeril] 10 mg PO TID #12 tab 05/07/19 Ibuprofen 600 mg PO TID #30 tablet 05/07/19 Allergies Allergy/AdvReac Type Severity Reaction Status Date / Time amoxicillin Allergy Anaphylaxis Verified 05/07/19 08:44 egg Allergy Nausea & Verified 05/07/19 08:44 Vomiting Latex, Natural Rubber Allergy Anaphylaxis Verified 05/07/19 08:44 Penicillins Allergy Anaphylaxis Verified 05/07/19 08:44 sulfamethoxazole Allergy Swelling Verified 05/07/19 08:44 [From Bactrim] trimethoprim [From Bactrim] Allergy Swelling Verified 05/07/19 08:44 vancomycin Allergy Swelling, Verified 05/07/19 08:44 ITCHING acetaminophen [From Vicodin] AdvReac Itching Verified 05/07/19 08:44 hydrocodone [From Vicodin] AdvReac Itching Verified 05/07/19 08:44 Review of Systems ROS Statement: Those systems with pertinent positive or pertinent negative responses have been documented in the HPI. ROS Other: All systems not noted in ROS Statement are negative. Past Medical History Past Medical History: Neurologic Disorder, Skin Disorder Additional Past Medical History / Comment(s): MIGRAINE Headaches. PSORIASIS. IBS ? History of Any Multi-Drug Resistant Organisms: None Reported Past Surgical History: Cholecystectomy Additional Past Surgical History / Comment(s): [place] teeth removal. I&D LT GROIN ABSCESS. Past Anesthesia/Blood Transfusion Reactions: No Reported Reaction, Family History of Problems w/ Anesthesia Additional Past Anesthesia/Blood Transfusion Reaction / Comment(s): FATHER AWAKENED DURING SURG Past Psychological History: ADD/ADHD, Anxiety, Depression Smoking Status: Former smoker Past Alcohol Use History: None Reported Past Drug Use History: None Reported - Past Family History Father Family Medical History: Cancer Additional Family Medical History / Comment(s): Patient states father passed of Brain CA with assosiated seizures/stroke. Mother Family Medical History: Hypertension Sister(s) Family Medical History: Rheumatoid Arthritis (RA), Thyroid Disorder Brother(s) History Unknown: Yes General Exam - General Exam Comments Initial Comments: 43-year-old female. No distress. Limitations: no limitations General appearance: alert, in no apparent distress Head exam: Present: atraumatic, normocephalic, normal inspection Eye exam: Present: normal appearance, PERRL, EOMI. Absent: scleral icterus, con junctival injection, periorbital swelling ENT exam: Present: normal exam, mucous membranes moist Neck exam: Present: normal inspection. Absent: tenderness, meningismus, lymphadenopathy Respiratory exam: Present: normal lung sounds bilaterally. Absent: respiratory distress, wheezes, rales, rhonchi, stridor Cardiovascular Exam: Present: regular rate, normal rhythm, normal heart sounds. Absent: systolic murmur, diastolic murmur, rubs, gallop, clicks GI/Abdominal exam: Present: soft, normal bowel sounds. Absent: distended, tenderness, guarding, rebound, rigid Extremities exam: Present: normal inspection, full ROM, normal capillary refill. Absent: tenderness, pedal edema, joint swelling, calf tenderness Back exam: Present: normal inspection, full ROM, muscle spasm (Patient has recent lumbar paraspinal muscle spasm.), paraspinal tenderness Neurological exam: Present: alert, oriented X3, CN II-XII intact Psychiatric exam: Present: normal affect, normal mood Skin exam: Present: warm, dry, intact, normal color. Absent: rash Course Vital Signs 05/07/19 08:28 Temperature 98.4 F Pulse Rate 87 Respiratory 18 Rate Blood Pressure 138/83 O2 Sat by Pulse 96 Oximetry Medical Decision Making - Medical Decision Making Asians referral female, she presents today after a work injury where she was helping another Patient, and was concerned falling and pulled her back while moving a patient. At that time Patient reports that she felt a snap in her back. Patient repordly has numbness and tingling into her back. Patient has no fall or significant trauma. No 70s. This time she was given by mouth Flexeril. She's had ibuprofen. X-ray of the back was completed and shows no evidence of any acute process. Benefit from lumbar spine MRI. Discussed that he continues to have pain and follow-up with back specialist. Discussed potential inflammatory medication and muscle relaxers in the meantime. All questions were answered return parameters were discussed. - Radiology Data Radiology results: report reviewed Stable findings. Lumbar MRI may be of benefit of her degenerative disease. Correlate with plain film prior to any intervention. There are surgical clips are present right upper quadrant with metallic posterior region of the umbilical integument. 6 lumbar vertebral bodies with transitional segment which is partially sacralized left. Loss of disc height is over sacral junction may be normal. Lumbar vertebral right knee show preserved height. No localization noted. Disposition Clinical Impression: Low back strain, Muscle spasm Disposition: HOME SELF-CARE Condition: Good Instructions (If sedation given, give patient instructions): Low Back Strain (ED) Additional Instructions: Please use medication as discussed. Please follow up with family doctor if symptoms have not improved over the next two days. Please return to the emergency room if your symptoms increase or worsen or for any other concerns. Prescriptions: Cyclobenzaprine [Flexeril] 10 mg PO TID #12 tab Ibuprofen 600 mg PO TID #30 tablet Is patient prescribed a controlled substance at d/c from ED?: No Referrals: Reed Chiang DO [Primary Care Provider] - 1-2 days Time of Disposition: 10:07
--- NOTE | 2019-05-07 09:29 | XR ---
MR spine HISTORY: Low back pain 3 views of the lumbar spine correlated prior exam July 27, 2018 Surgical clips are present in the right upper quadrant, there is a metallic post through the region o f the umbilical integument. There may be 6 lumbar vertebral bodies with transitional segment which is partially sacralized on the left. Loss of disc height present at the lumbosacral junction may be nor mal variant. Lumbar vertebral bodies show preserved height and alignment, bone mineralization. IMPRESSION: Essentially stable findings. Lumbar MRI may be of benefit to assess for possible degenera tive disc disease. Correlate with plain film prior to any intervention.
[2019-05-07 10:21] VITALS: BP 134/75; PULSE 71; RESP 19; TEMP 99.3
== END 2019-05-07 10:21 | disposition home or self-care (01) ==
LOC: EC 08:25
DX: S39.012A Strain of muscle, fascia and tendon of lower back, initial encounter (principal); M62.830 Muscle spasm of back; F90.9 Attention-deficit hyperactivity disorder, unspecified type; Z79.899 Other long term (current) drug therapy; Z88.0 Allergy status to penicillin; Z88.2 Allergy status to sulfonamides; Z88.1 Allergy status to other antibiotic agents; Z88.5 Allergy status to narcotic agent; Z88.8 Allergy status to other drugs, medicaments and biological substances; Z91.040 Latex allergy status; Z91.012 Allergy to eggs; X50.0XXA Overexertion from strenuous movement or load, initial encounter; Y93.89 Activity, other specified; Y92.69 Other specified industrial and construction area as the place of occurrence of the external cause; Y99.0 Civilian activity done for income or pay
CPT/HCPCS: 72100; 99284

== ENCOUNTER 2019-08-07 02:16 | Inpatient (IN) | payer BC ==
--- NOTE | 2019-08-07 03:03 | ED ---
Skin/Abscess/FB HPI - General Source: patient Mode of arrival: ambulatory Limitations: no limitations <Víctor Mark - Last Filed: 08/07/19 04:05> <Erinn Harrington - Last Filed: 08/07/19 05:38> - General Chief complaint: Skin/Abscess/Foreign Body Stated complaint: Abscess, Fever Time Seen by Provider: 08/07/19 02:54 - History of Present Illness Initial comments: Patient is a 24-year-old female with history of abscesses presenting to the emergency department with a chief complaint of an abscess. Patient reports she has developed an abscess in the right axilla about 1 week ago. Patient reports over the last several hours the pain is increasing severity as well as the induration of the abscess. Patient denies any drainage from the region. Patient also reports that she developed a fever today. She states that she was admitted previously for an abscess and a fever as well And had the abscess nation rgically removed. Denies taking medication at home. (Víctor Mark) - Related Data Home Medications Medication Instructions Recorded Confirmed Dextroamphetamine/Amphetamine 20 mg PO BID@0600,1200 05/07/19 05/07/19 [Adderall] Ibuprofen [Motrin Ib] 800 mg PO Q6H PRN 05/07/19 05/07/19 Previous Rx's Medication Instructions Recorded Cyclobenzaprine [Flexeril] 10 mg PO TID #12 tab 05/07/19 Ibuprofen 600 mg PO TID #30 tablet 05/07/19 Allergies Allergy/AdvReac Type Severity Reaction Status Date / Time amoxicillin Allergy Anaphylaxis Verified 08/07/19 02:31 egg Allergy Nausea & Verified 08/07/19 02:31 Vomiting Latex, Natural Rubber Allergy Anaphylaxis Verified 08/07/19 02:31 Penicillins Allergy Anaphylaxis Verified 08/07/19 02:31 sulfamethoxazole Allergy Swelling Verified 08/07/19 02:31 [From Bactrim] trimethoprim [From Bactrim] Allergy Swelling Verified 08/07/19 02:31 vancomycin Allergy Swelling, Verified 08/07/19 02:31 ITCHING acetaminophen [From Vicodin] AdvReac Itching Verified 08/07/19 02:31 hydrocodone [From Vicodin] AdvReac Itching Verified 08/07/19 02:31 Review of Systems ROS Other: All systems not noted in ROS Statement are negative. <DeedeeVíctor - Last Filed: 08/07/19 04:05> ROS Other: All systems not noted in ROS Statement are negative. <Erinn Harrington Bria - Last Filed: 08/07/19 05:38> ROS Statement: Those systems with pertinent positive or pertinent negative responses have been documented in the HPI. Past Medical History Past Medical History: Neurologic Disorder, Skin Disorder Additional Past Medical History / Comment(s): MIGRAINE Headaches. PSORIASIS. IBS ? History of Any Multi-Drug Resistant Organisms: None Reported Past Surgical History: Cholecystectomy Additional Past Surgical History / Comment(s): [place] teeth removal. I&D LT GROIN ABSCESS. Past Anesthesia/Blood Transfusion Reactions: No Reported Reaction, Family History of Problems w/ Anesthesia Additional Past Anesthesia/Blood Transfusion Reaction / Comment(s): FATHER AWAKENED DURING SURG Past Psychological History: ADD/ADHD, Anxiety, Depression Smoking Status: Former smoker Past Alcohol Use History: None Reported Past Drug Use History: None Reported - Past Family History Father Family Medical History: Cancer Additional Family Medical History / Comment(s): Patient states father passed of Brain CA with assosiated seizures/stroke. Mother Family Medical History: Hypertension Sister(s) Family Medical History: Rheumatoid Arthritis (RA), Thyroid Disorder Brother(s) History Unknown: Yes <DeedeeVíctor - Last Filed: 08/07/19 04:05> General Exam Limitations: no limitations General appearance: alert, in no apparent distress Head exam: Present: atraumatic, normocephalic, normal inspection Eye exam: Present: normal appearance, PERRL, EOMI Pupils: Present: normal accommodation ENT exam: Present: normal exam, mucous membranes moist Neck exam: Present: normal inspection, full ROM Respiratory exam: Present: normal lung sounds bilaterally. Absent: respiratory distress, wheezes, rales Cardiovascular Exam: Present: normal rhythm, tachycardia, normal heart sounds Extremities exam: Present: full ROM, tenderness (Tenderness at the site of an abscess.), normal capillary refill. Absent: normal inspection (Abscess in right axilla. Some surrounding erythema with no active discharge.) Back exam: Present: normal inspection, full ROM Neurological exam: Present: alert, oriented X3 Psychiatric exam: Present: normal affect, normal mood Skin exam: Present: warm, dry, intact, normal color <Víctor Mark - Last Filed: 08/07/19 04:05> Course Vital Signs 08/07/19 08/07/19 02:28 05:23 Temperature 101.3 F H 101 F H Pulse Rate 109 H 101 H Respiratory 20 16 Rate Blood Pressure 135/85 136/80 O2 Sat by Pulse 98 98 Oximetry Medical Decision Making <Víctor Mark - Last Filed: 08/07/19 04:05> - Lab Data Result diagrams: 08/07/19 03:50 08/07/19 03:50 - EKG Data -: EKG Interpreted by Me <Erinn Harrington - Last Filed: 08/07/19 05:38> - Medical Decision Making Patient is a 24-year-old female with history of abscesses presenting to the emergency room with a chief complaint of an abscess. On exam patient does have a right axillary abscess with no active drainage at this time. Patient is febrile on arrival. Septic workup was initiated. Patient previously had a similar issue where she was admitted and had a surgical removal of the abscess. Laboratory work pending. At this time, the patient will be signed off to Dr. Harrington. (Víctor Mark) Personally saw and Evaluated the patient. 24-year-old female with a history of multiple abscesses in the past presenting to the ER today with an abscess and surrounding cellulitis in her right axilla. Patient's previous abscess was in the groin and required surgical I&D and was found to have gram-negative bacteria. This appears to be more like a hidradenitis, patient seems to have to definitive areas of abscess that are firm with no large fluctuant areas for drainage. We'll plan to admit the patient for IV antibiotics for sepsis secondary to abscess in the axilla. Patient care was discussed with Dr. Loza who agrees with plan for admission, IV antibiotics and a consult to surgery. Patient's previous abscess was drained by a surgeon who is no longer practicing at this hospital however she has established relationship with Dr. Byrne who did her cholecystectomy therefore Dr. Byrne will be consulted (Erinn Harrington) - Lab Data Lab Results 08/07/19 08/07/19 08/07/19 Range/Units 03:50 03:50 03:50 WBC 16.8 H (3.8-10.6) k/uL RBC 5.07 (3.80-5.40) m/uL Hgb 15.1 (11.4-16.0) gm/dL Hct 46.1 H (34.0-46.0) % MCV 91.0 (80.0-100.0) fL MCH 29.8 (25.0-35.0) pg MCHC 32.7 (31.0-37.0) g/dL RDW 12.4 (11.5-15.5) % Plt Count 198 (150-450) k/uL Neutrophils % 82 % Lymphocytes % 10 % Monocytes % 5 % Eosinophils % 2 % Basophils % 2 % Neutrophils # 13.7 H (1.3-7.7) k/uL Lymphocytes # 1.6 (1.0-4.8) k/uL Monocytes # 0.8 (0-1.0) k/uL Eosinophils # 0.3 (0-0.7) k/uL Basophils # 0.2 (0-0.2) k/uL Sodium 139 (137-145) mmol/L Potassium 4.1 (3.5-5.1) mmol/L Chloride 106 (98-107) mmol/L Carbon Dioxide 23 (22-30) mmol/L Anion Gap 10 mmol/L BUN 17 (7-17) mg/dL Creatinine 0.84 (0.52-1.04) mg/dL Est GFR (CKD-EPI)AfAm >90 (>60 ml/min/1.73 sqM) Est GFR (CKD-EPI)NonAf >90 (>60 ml/min/1.73 sqM) Glucose 96 (74-99) mg/dL Plasma Lactic Acid Serafin 1.4 (0.7-2.0) mmol/L Calcium 9.5 (8.4-10.2) mg/dL Total Bilirubin 1.0 (0.2-1.3) mg/dL AST 27 (14-36) U/L ALT 26 (4-34) U/L Alkaline Phosphatase 38 (38-126) U/L Total Protein 7.2 (6.3-8.2) g/dL Albumin 4.3 (3.5-5.0) g/dL Urine Color Urine Appearance (Clear) Urine pH (5.0-8.0) Ur Specific [place] (1.001-1.035) Urine Protein (Negative) Urine Glucose (UA) (Negative) Urine Ketones (Negative) Urine Blood (Negative) Urine Nitrite (Negative) Urine Bilirubin (Negative) Urine Urobilinogen (<2.0) mg/dL Ur Leukocyte Esterase (Negative) Urine RBC (0-5) /hpf Urine WBC (0-5) /hpf Ur Squamous Epith Cells (0-4) /hpf Urine Bacteria (None) /hpf Urine Mucus (None) /hpf 08/07/19 Range/Units 04:15 WBC (3.8-10.6) k/uL RBC (3.80-5.40) m/uL Hgb (11.4-16.0) gm/dL Hct (34.0-46.0) % MCV (80.0-100.0) fL MCH (25.0-35.0) pg MCHC (31.0-37.0) g/dL RDW (11.5-15.5) % Plt Count (150-450) k/uL Neutrophils % % Lymphocytes % % Monocytes % % Eosinophils % % Basophils % % Neutrophils # (1.3-7.7) k/uL Lymphocytes # (1.0-4.8) k/uL Monocytes # (0-1.0) k/uL Eosinophils # (0-0.7) k/uL Basophils # (0-0.2) k/uL Sodium (137-145) mmol/L Potassium (3.5-5.1) mmol/L Chloride (98-107) mmol/L Carbon Dioxide (22-30) mmol/L Anion Gap mmol/L BUN (7-17) mg/dL Creatinine (0.52-1.04) mg/dL Est GFR (CKD-EPI)AfAm (>60 ml/min/1.73 sqM) Est GFR (CKD-EPI)NonAf (>60 ml/min/1.73 sqM) Glucose (74-99) mg/dL Plasma Lactic Acid Serafin (0.7-2.0) mmol/L Calcium (8.4-10.2) mg/dL Total Bilirubin (0.2-1.3) mg/dL AST (14-36) U/L ALT (4-34) U/L Alkaline Phosphatase (38-126) U/L Total Protein (6.3-8.2) g/dL Albumin (3.5-5.0) g/dL Urine Color Yellow Urine Appearance Cloudy H (Clear) Urine pH 7.5 (5.0-8.0) Ur Specific [place] 1.019 (1.001-1.035) Urine Protein Negative (Negative) Urine Glucose (UA) Negative (Negative) Urine Ketones Negative (Negative) Urine Blood Trace H (Negative) Urine Nitrite Negative (Negative) Urine Bilirubin Negative (Negative) Urine Urobilinogen <2.0 (<2.0) mg/dL Ur Leukocyte Esterase Small H (Negative) Urine RBC 2 (0-5) /hpf Urine WBC 3 (0-5) /hpf Ur Squamous Epith Cells 12 H (0-4) /hpf Urine Bacteria Few H (None) /hpf Urine Mucus Occasional H (None) /hpf - EKG Data EKG Comments: EKG was obtained as part of the sepsis workup, EKG was obtained at 3:57 AM, rate is 87 rhythm is sinus there is normal axis. Normal intervals, CA 136, converses 82 QTc is 438 there are no acute ST elevations or depressions there is no evidence of acute ischemia or infarction. (Erinn Harrington) Disposition <Víctor Mark - Last Filed: 08/07/19 04:05> <Erinn Harrington - Last Filed: 08/07/19 05:38> Clinical Impression: Abscess of axilla, right, Sepsis, Cellulitis Disposition: ADMITTED IP TO THIS HOSP Condition: Stable Referrals: Reed Chiang DO [Primary Care Provider] - 1-2 days
[2019-08-07] MEDS: ACETAMINOPHEN TAB 325 MG TAB PO STA ×2 (03:38→04:31)
[2019-08-07 04:05] LABS: Basophils # (A) 0.2 k/uL (0-0.2); Basophils % (A) 2 %; Eosinophils # (A) 0.3 k/uL (0-0.7); Eosinophils % (A) 2 %; HCT 46.1 % (34.0-46.0); HGB 15.1 gm/dL (11.4-16.0); Lymphocytes # (A) 1.6 k/uL (1.0-4.8); Lymphocytes % (A) 10 %; MCH 29.8 pg (25.0-35.0); MCHC 32.7 g/dL (31.0-37.0); Mean Platelet Volume 8.2; Monocytes # (A) 0.8 k/uL (0-1.0); Monocytes % (A) 5 %; Neutrophils # (A) 13.7 k/uL (1.3-7.7); Neutrophils % (A) 82 %; Platelet Count 198 k/uL (150-450); RBC 5.07 m/uL (3.80-5.40); RDW 12.4 % (11.5-15.5); WBC 16.8 k/uL (3.8-10.6)
[2019-08-07] MEDS: SODIUM CHLORIDE 0.9% 500 ML 500 ML IV SCH ×2 (04:05→04:06)
[2019-08-07 04:21] LABS: ALT 26 U/L (4-34); AST 27 U/L (14-36); African American GFR (CKD) >90 (>60 ml/min/1.73 sqM); Albumin 4.3 g/dL (3.5-5.0); Alkaline Phosphatase 38 U/L (38-126); Anion Gap 10 mmol/L; Blood Urea Nitrogen 17 mg/dL (7-17); Calcium 9.5 mg/dL (8.4-10.2); Carbon Dioxide 23 mmol/L (22-30); Chloride 106 mmol/L (98-107); Glucose 96 mg/dL (74-99); Non-African American GFR(CKD) >90 (>60 ml/min/1.73 sqM); Sodium 139 mmol/L (137-145); Total Protein 7.2 g/dL (6.3-8.2)
[2019-08-07 04:59] LABS: INR 0.9 (<1.2); Prothrombin Time 9.7 sec (9.0-12.0)
[2019-08-07 05:00] LABS: Potassium 4.1 mmol/L (3.5-5.1)
[2019-08-07 05:23] LABS: Appearance,Urine Cloudy (Clear); Bacteria,Urine Few /hpf; Bilirubin,Urine Negative (Negative); Blood,Urine Trace (Negative); Color,Urine Yellow; Glucose,Urine (UA) Negative (Negative); Ketones,Urine Negative (Negative); Leukocyte Esterase,Urine Small (Negative); Mucus,Urine Occasional /hpf; Nitrite,Urine Negative (Negative); PH, Urine 7.5 (5.0-8.0); Protein,Urine Negative (Negative); RBC,Urine 2 /hpf (0-5); Specific Gravity,Urine 1.019 (1.001-1.035); Squamous Epithelial Cell,Urine 12 /hpf (0-4); Urobilinogen,Urine <2.0 mg/dL (<2.0); WBC,Urine 3 /hpf (0-5)
[2019-08-07] MEDS ORDERED: NALOXONE 0.4 MG/ML 1 ML VIAL IV PRN (05:32)
[2019-08-07] MEDS ORDERED: MORPHINE SULFATE 4 MG/ML SYRINGE IV PRN (05:32)
[2019-08-07] MEDS ORDERED: cefTRIAXone IN SWFI 1,000 MG/10 ML SYRINGE IVP STA (05:32)
[2019-08-07 05:39] LABS: Partial Thromboplastin Time 21.5 sec (22.0-30.0)
[2019-08-07] MEDS: SODIUM CHLORIDE 0.9% 1,000 ML IV SCH ×2 (06:02→19:26)
[2019-08-07] MEDS ORDERED: ONDANSETRON 4 MG/2 ML VIAL IVP PRN (08:50)
[2019-08-07] MEDS: PANTOPRAZOLE 40 MG/10 ML VIAL IVP SCH ×2 (09:12→19:26)
--- NOTE | 2019-08-07 12:12 | P.GSCN ---
<Ana Gutierrez - Last Filed: 08/07/19 12:06> History of Present Illness Consult date: 08/07/19 Reason for Consult: axilla abscess Requesting physician: Erinn Harrington History of present illness: CHIEF COMPLAINT: axilla abscess HISTORY OF PRESENT ILLNESS: 24-year-old feeling presented to the emergency room due to an abscess in her right axillary region. Patient states she has had a wound in her right axilla for about 3 days. She states she called her primary care physician but was unable to get an appointment in his office. He did however call her in some Bactrim. The patient reports she took one dose of it yesterday at home. She reports having fevers at home and decided to come to the emergency room for further evaluation. The patient does have a history of a left groin abscess that required incision and drainage [place] [address] Rosario PAST MEDICAL HISTORY: See list. PAST SURGICAL HISTORY: See list. SOCIAL HISTORY: No illicit drug use. REVIEW OF SYSTEMS: CONSTITUTIONAL: Reports fever. HEENT: Denies blurred vision, vision changes, or eye pain. Denies hemoptysis CARDIOVASCULAR: Denies chest pain or pressure. RESPIRATORY: No shortness of breath. GASTROINTESTINAL: Denies abdominal pain. Denies nausea or vomiting. HEMATOLOGIC: Denies bleeding disorders. GENITOURINARY: Denies any blood in urine. SKIN: Reports abscess to right armpit. PHYSICAL EXAM: VITAL SIGNS: Reviewed. GENERAL: Well-developed in no acute distress. HEENT: No sclera icterus. Extraocular movements grossly intact. Moist buccal mucosa. Head is atraumatic, normocephalic. ABDOMEN: Soft. Nondistended. Nontender. NEUROLOGIC: Alert and oriented. Cranial nerves II through XII grossly intact. SKIN: Right axilla warm to touch. Very tender with light palpation limiting examination. Axilla with erythema and firmness present. No active drainage noted. LABORATORY DATA: WBC 16.8. Hemoglobin 15.1. Platelet count 198. ASSESSMENT: 1. Right axilla abscess 2. History of left groin abscess requiring incision and drainage, 2018 PLAN: -NPO -Continue IV antibiotics -Monitor WBC. Repeat in AM -Obtain ultrasound of right axilla -Possible incision and drainage of right axilla abscess this afternoon with Dr. Byrne pending ultrasound results Nurse practitioner note has been reviewed by physician. Signing provider agrees with the documented findings, assessment, and plan of care. Past Medical History Past Medical History: Neurologic Disorder, Skin Disorder Additional Past Medical History / Comment(s): MIGRAINE Headaches. PSORIASIS. History of Any Multi-Drug Resistant Organisms: None Reported Past Surgical History: Cholecystectomy Additional Past Surgical History / Comment(s): [place] teeth removal. I&D LT GROIN ABSCESS. Past Anesthesia/Blood Transfusion Reactions: No Reported Reaction, Family History of Problems w/ Anesthesia Additional Past Anesthesia/Blood Transfusion Reaction / Comm: FATHER AWAKENED DURING SURG Smoking Status: Former smoker - Past Family History Father Family Medical History: Cancer Additional Family Medical History / Comment(s): Patient states father passed of Brain CA with assosiated seizures/stroke. Mother Family Medical History: Hypertension Sister(s) Family Medical History: Rheumatoid Arthritis (RA), Thyroid Disorder Brother(s) History Unknown: Yes Medications and Allergies Home Medications Medication Instructions Recorded Confirmed Type Dextroamphetamine/Amphetamine 20 mg PO BID@0600,1200 05/07/19 08/07/19 History [Adderall] Etonogestrel/Ethinyl Estradiol 1 ring VG Q21D 08/07/19 08/07/19 History [Nuvaring Vaginal Ring] Sulfamethox-Tmp 800-160Mg [Bactrim 1 tab PO Q12HR 08/07/19 08/07/19 History DS 800-160 mg] Allergies Allergy/AdvReac Type Severity Reaction Status Date / Time amoxicillin Allergy Anaphylaxis Verified 08/07/19 07:29 egg Allergy Nausea & Verified 08/07/19 07:29 Vomiting Latex, Natural Rubber Allergy Anaphylaxis Verified 08/07/19 07:29 Penicillins Allergy Anaphylaxis Verified 08/07/19 07:29 sulfamethoxazole Allergy Swelling Verified 08/07/19 07:29 [From Bactrim] trimethoprim [From Bactrim] Allergy Swelling Verified 08/07/19 07:29 vancomycin Allergy Swelling, Verified 08/07/19 07:29 ITCHING acetaminophen [From Vicodin] AdvReac Itching Verified 08/07/19 07:29 hydrocodone [From Vicodin] AdvReac Itching Verified 08/07/19 07:29 Surgical - Exam Vital Signs Temp Pulse Resp BP Pulse Ox 101.3 F H 109 H 20 135/85 98 08/07/19 02:28 08/07/19 02:28 08/07/19 02:28 08/07/19 02:28 08/07/19 02:28 Results - Labs 08/07/19 03:50 08/07/19 03:50 Abnormal Lab Results - Last 24 Hours (Table) 08/07/19 08/07/19 08/07/19 Range/Units 03:50 03:50 04:15 WBC 16.8 H (3.8-10.6) k/uL Hct 46.1 H (34.0-46.0) % Neutrophils # 13.7 H (1.3-7.7) k/uL APTT 21.5 L (22.0-30.0) sec Urine Appearance Cloudy H (Clear) Urine Blood Trace H (Negative) Ur Leukocyte Esterase Small H (Negative) Ur Squamous Epith Cells 12 H (0-4) /hpf Urine Bacteria Few H (None) /hpf Urine Mucus Occasional H (None) /hpf Diabetes panel 08/07/19 Range/Units 03:50 Sodium 139 (137-145) mmol/L Potassium 4.1 (3.5-5.1) mmol/L Chloride 106 (98-107) mmol/L Carbon Dioxide 23 (22-30) mmol/L BUN 17 (7-17) mg/dL Creatinine 0.84 (0.52-1.04) mg/dL Glucose 96 (74-99) mg/dL Calcium 9.5 (8.4-10.2) mg/dL AST 27 (14-36) U/L ALT 26 (4-34) U/L Alkaline Phosphatase 38 (38-126) U/L Total Protein 7.2 (6.3-8.2) g/dL Albumin 4.3 (3.5-5.0) g/dL Calcium panel 08/07/19 Range/Units 03:50 Calcium 9.5 (8.4-10.2) mg/dL Albumin 4.3 (3.5-5.0) g/dL Pituitary panel 08/07/19 Range/Units 03:50 Sodium 139 (137-145) mmol/L Potassium 4.1 (3.5-5.1) mmol/L Chloride 106 (98-107) mmol/L Carbon Dioxide 23 (22-30) mmol/L BUN 17 (7-17) mg/dL Creatinine 0.84 (0.52-1.04) mg/dL Glucose 96 (74-99) mg/dL Calcium 9.5 (8.4-10.2) mg/dL Adrenal panel 08/07/19 Range/Units 03:50 Sodium 139 (137-145) mmol/L Potassium 4.1 (3.5-5.1) mmol/L Chloride 106 (98-107) mmol/L Carbon Dioxide 23 (22-30) mmol/L BUN 17 (7-17) mg/dL Creatinine 0.84 (0.52-1.04) mg/dL Glucose 96 (74-99) mg/dL Calcium 9.5 (8.4-10.2) mg/dL Total Bilirubin 1.0 (0.2-1.3) mg/dL AST 27 (14-36) U/L ALT 26 (4-34) U/L Alkaline Phosphatase 38 (38-126) U/L Total Protein 7.2 (6.3-8.2) g/dL Albumin 4.3 (3.5-5.0) g/dL <Ward Byrne - Last Filed: 08/07/19 21:34> History of Present Illness History of present illness: As above. Clinically has right axillary abscess with cellulitis. Operating room schedule precludes procedure at this evening. We will perform I&D in a.m. Continue antibiotics. Surgical - Exam Vital Signs Temp Pulse Resp BP Pulse Ox 101.3 F H 109 H 20 135/85 98 08/07/19 02:28 08/07/19 02:28 08/07/19 02:28 08/07/19 02:28 08/07/19 02:28 Results - Labs 08/07/19 03:50 08/07/19 03:50 Abnormal Lab Results - Last 24 Hours (Table) 08/07/19 08/07/19 08/07/19 Range/Units 03:50 03:50 04:15 WBC 16.8 H (3.8-10.6) k/uL Hct 46.1 H (34.0-46.0) % Neutrophils # 13.7 H (1.3-7.7) k/uL APTT 21.5 L (22.0-30.0) sec Urine Appearance Cloudy H (Clear) Urine Blood Trace H (Negative) Ur Leukocyte Esterase Small H (Negative) Ur Squamous Epith Cells 12 H (0-4) /hpf Urine Bacteria Few H (None) /hpf Urine Mucus Occasional H (None) /hpf Diabetes panel 08/07/19 Range/Units 03:50 Sodium 139 (137-145) mmol/L Potassium 4.1 (3.5-5.1) mmol/L Chloride 106 (98-107) mmol/L Carbon Dioxide 23 (22-30) mmol/L BUN 17 (7-17) mg/dL Creatinine 0.84 (0.52-1.04) mg/dL Glucose 96 (74-99) mg/dL Calcium 9.5 (8.4-10.2) mg/dL AST 27 (14-36) U/L ALT 26 (4-34) U/L Alkaline Phosphatase 38 (38-126) U/L Total Protein 7.2 (6.3-8.2) g/dL Albumin 4.3 (3.5-5.0) g/dL Calcium panel 08/07/19 Range/Units 03:50 Calcium 9.5 (8.4-10.2) mg/dL Albumin 4.3 (3.5-5.0) g/dL Pituitary panel 08/07/19 Range/Units 03:50 Sodium 139 (137-145) mmol/L Potassium 4.1 (3.5-5.1) mmol/L Chloride 106 (98-107) mmol/L Carbon Dioxide 23 (22-30) mmol/L BUN 17 (7-17) mg/dL Creatinine 0.84 (0.52-1.04) mg/dL Glucose 96 (74-99) mg/dL Calcium 9.5 (8.4-10.2) mg/dL Adrenal panel 08/07/19 Range/Units 03:50 Sodium 139 (137-145) mmol/L Potassium 4.1 (3.5-5.1) mmol/L Chloride 106 (98-107) mmol/L Carbon Dioxide 23 (22-30) mmol/L BUN 17 (7-17) mg/dL Creatinine 0.84 (0.52-1.04) mg/dL Glucose 96 (74-99) mg/dL Calcium 9.5 (8.4-10.2) mg/dL Total Bilirubin 1.0 (0.2-1.3) mg/dL AST 27 (14-36) U/L ALT 26 (4-34) U/L Alkaline Phosphatase 38 (38-126) U/L Total Protein 7.2 (6.3-8.2) g/dL Albumin 4.3 (3.5-5.0) g/dL
--- NOTE | 2019-08-07 12:19 | P.HPIM ---
History of Present Illness H&P Date: 08/07/19 Chief Complaint: Abscess This is a 24-year-old female patient of Dr. Chiang with past medical history of migraine headaches, ADHD, history of I&D leftt groin abscess. Patient complains of abscess under her right arm for 2 days along with fever and pain, pain became unbearable. She contacted Dr. Chiang's office and a prescription for Bactrim was called for her. She took 1 dose last evening at 8 PM but due to excruciating pain and fevers, patient came into emergency center for evaluation. Patient gives history of having a previous abscess and the gr oin that was I&D by Dr. Rosario one and half years ago. She denies any history of MRSA. Patient states that she tried to drain this abscess on her own. Patient was evaluated and [facility] emergency center. Patient was found to have a temperature of 101.3, tachycardia, blood pressure 135/85, leukocytosis 16.8, lactic acid 1.4. Other lab work unremarkable. Urinalysis trace blood, leukoesterase small. EKG was a sinus rhythm with no acute ST-T wave changes. She was given 3 L of IV fluids, Rocephin. Patient was ordered for an admission to the [facility] floor and consult with Dr. Byrne. Patient is currently nothing by mouth. Review of Systems Constitutional: Reports chills, Reports fatigue, Reports fever, Reports poor appetite, Denies weakness Eyes: denies blurred vision, denies pain Ears, nose, mouth and throat: Denies dysphagia, Denies headache, Denies nasal congestion, Denies nasal discharge, Denies sore throat, Denies vertigo Cardiovascular: Denies chest pain, Denies decreased exercise tolerance, Denies dyspnea on exertion, Denies edema, Denies leg edema, Denies lightheadedness, Denies shortness of breath, Denies syncope Respiratory: Denies cough, Denies cough with sputum, Denies dyspnea, Denies excessive sputum, Denies hemoptysis, Denies home oxygen, Denies respiratory infections, Denies sleep apnea, Denies wheezing Gastrointestinal: Denies abdominal pain, Denies diarrhea, Denies nausea, Denies vomiting Genitourinary: Denies dysuria, Denies hematuria, Denies urgency, Denies urinary frequency Musculoskeletal: Denies frequent falls, Denies gait dysfunction, Denies muscle weakness, Denies myalgias Integumentary: Reports boils, Reports wounds, Denies pruritus, Denies rash Neurological: Denies change in mentation, Denies change in speech, Denies numbness, Denies weakness Psychiatric: Denies anxiety, Denies depression Endocrine: Denies fatigue, Denies weight change Past Medical History Past Medical History: Neurologic Disorder, Skin Disorder Additional Past Medical History / Comment(s): MIGRAINE Headaches. PSORIASIS. History of Any Multi-Drug Resistant Organisms: None Reported Past Surgical History: Cholecystectomy Additional Past Surgical History / Comment(s): [place] teeth removal. I&D LT GROIN ABSCESS. Past Anesthesia/Blood Transfusion Reactions: No Reported Reaction, Family History of Problems w/ Anesthesia Additional Past Anesthesia/Blood Transfusion Reaction / Comment(s): FATHER AWAKENED DURING SURG Smoking Status: Former smoker Additional Past Alcohol Use History / Comment(s): Patient was a smoker of a half a pack per day starting in 2007 and quit in 2019. 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 - Past Family History Father Family Medical History: Cancer Additional Family Medical History / Comment(s): Father at age 50 from Brain CA with assosiated seizures/stroke. Mother Family Medical History: Hypertension Additional Family Medical History / Comment(s): Mother is alive with history of hypertension, fibromyalgia. Sister(s) Family Medical History: Rheumatoid Arthritis (RA), Thyroid Disorder Additional Family Medical History / Comment(s): Patient has a total of 6 siblings with no major medical problems. Patient does not have any children. Brother(s) History Unknown: Yes Medications and Allergies Home Medications Medication Instructions Recorded Confirmed Type Dextroamphetamine/Amphetamine 20 mg PO BID@0600,1200 05/07/19 08/07/19 History [Adderall] Etonogestrel/Ethinyl Estradiol 1 ring VG Q21D 08/07/19 08/07/19 History [Nuvaring Vaginal Ring] Sulfamethox-Tmp 800-160Mg [Bactrim 1 tab PO Q12HR 08/07/19 08/07/19 History DS 800-160 mg] Allergies Allergy/AdvReac Type Severity Reaction Status Date / Time amoxicillin Allergy Anaphylaxis Verified 08/07/19 07:29 egg Allergy Nausea & Verified 08/07/19 07:29 Vomiting Latex, Natural Rubber Allergy Anaphylaxis Verified 08/07/19 07:29 Penicillins Allergy Anaphylaxis Verified 08/07/19 07:29 sulfamethoxazole Allergy Swelling Verified 08/07/19 07:29 [From Bactrim] trimethoprim [From Bactrim] Allergy Swelling Verified 08/07/19 07:29 vancomycin Allergy Swelling, Verified 08/07/19 07:29 ITCHING acetaminophen [From Vicodin] AdvReac Itching Verified 08/07/19 07:29 hydrocodone [From Vicodin] AdvReac Itching Verified 08/07/19 07:29 Physical Exam Vitals: Vital Signs Temp Pulse Pulse Resp BP BP Pulse Ox 08/07/19 08:22 99.2 F 93 16 237/74 97 08/07/19 05:23 101 F H 101 H 16 136/80 98 08/07/19 02:28 101.3 F H 109 H 20 135/85 98 Intake and Output 08/06/19 08/07/19 08/07/19 22:59 06:59 14:59 Other: Weight 78.925 kg 78.925 kg Gen: This is a 24-year-old female. Patient is resting in the ER stretcher and appears to be comfortable and in no acute distress HEENT: Head is atraumatic, normocephalic. Pupils equal, round. Sclerae is anicteric. NECK: Supple. No JVD. No lymphadenopathy. No thyromegaly. LUNGS: Clear to auscultation. No wheezes or rhonchi. No intercostal retractio ns. HEART: Regular rate and rhythm. No murmur. Axillary: Patient has a large approximately golf ball size abscess to the right axilla area with surrounding erythema. No drainage. ABDOMEN: Soft. Bowel sounds are present. No masses. No tenderness. EXTREMITIES: No pedal edema. No calf tenderness. NEUROLOGICAL: Patient is awake, alert and oriented x3. Cranial nerves 2 through 12 are grossly intact. Results CBC & Chem 7: 08/07/19 03:50 08/07/19 03:50 Labs: Abnormal Lab Results - Last 24 Hours (Table) 08/07/19 08/07/19 08/07/19 Range/Units 03:50 03:50 04:15 WBC 16.8 H (3.8-10.6) k/uL Hct 46.1 H (34.0-46.0) % Neutrophils # 13.7 H (1.3-7.7) k/uL APTT 21.5 L (22.0-30.0) sec Urine Appearance Cloudy H (Clear) Urine Blood Trace H (Negative) Ur Leukocyte Esterase Small H (Negative) Ur Squamous Epith Cells 12 H (0-4) /hpf Urine Bacteria Few H (None) /hpf Urine Mucus Occasional H (None) /hpf Thrombosis Risk Factor Assmnt - DVT/VTE Prophylaxis DVT/VTE Prophylaxis: Mechanical Prophylaxis ordered - Choose All That Apply Any of the Below Risk Factors Present?: Yes Each Factor Represents 1 point: Obesity (BMI >25) Other Risk Factors: No Other congenital or acquired thrombophilia - If yes, enter type in comment: No Thrombosis Risk Factor Assessment Total Risk Factor Score: 1 Thrombosis Risk Factor Assessment Level: Low Risk Assessment and Plan Plan: 1. Sepsis secondary to right axillary abscess. History of previous abscess with MSSA. Status post IV fluid resuscitation of 3 L, continue ceftriaxone, consult with Dr. Byrne, nothing by mouth status for possible I&D today. 2. History of migraine headaches, stable. 3. Nausea possibly related to pain medication, GERD. Patient started on Zofran and Protonix. 4. Gastrointestinal prophylaxis. Protonix. 5. DVT prophylaxis. SCDs and LALI hose. Patient will be admitted to the hospital for a minimum of 2 night stay. Discharge plan: Return home Impression and plan of care have been directed as dictated by the signing physician. Nedra Leroy nurse practitioner acting as scribe for signing physician.
--- NOTE | 2019-08-07 12:38 | US ---
EXAMINATION TYPE: US axilla RT DATE OF EXAM: 08/07/2019 COMPARISON: NONE CLINICAL HISTORY: abscess. Pt has pain and redness right axilla TECHNIQUE: Targeted grayscale and color ultrasound were performed of the patient's area of pain and r edness of the right axilla. Hypervascular, mixed area within right axilla where pt has redness and pain, 3.6 x 4.4 cm mostly co ntained within soft tissue, no sizeable fluid pocket visualized. Fluid is seen tracking along the s oft tissue planes elongated measuring up to 3.6 cm. No focal drainable fluid collection. IMPRESSION: Findings suggesting cellulitis and subcutaneous phlegmonous change with subcutaneous malia ma and hyperemia. No current demarcated sizable, drainable abscess.
[2019-08-07] MEDS: ACETAMINOPHEN TAB 325 MG TAB PO PRN ×2 (13:15→19:26)
[2019-08-07] MEDS ORDERED: DEXAMETHASONE SOD PHOSPHATE 10 MG/ML 1 ML VIAL IV ONE (15:18)
[2019-08-07] MEDS ORDERED: ONDANSETRON 4 MG/2 ML VIAL IVP ONE (15:18)
[2019-08-07] MEDS: LACTATED RINGERS 1,000 ML IV SCH (17:26)
[2019-08-08] MEDS: ACETAMINOPHEN TAB 325 MG TAB PO PRN ×2 (05:06→15:05)
[2019-08-08] MEDS: SODIUM CHLORIDE 0.9% 1,000 ML IV SCH ×3 (09:35→23:13)
[2019-08-08] MEDS: PANTOPRAZOLE 40 MG/10 ML VIAL IVP SCH ×2 (09:36→20:22)
[2019-08-08 09:40] LABS: Basophils # (A) 0.1 k/uL (0-0.2); Basophils % (A) 1 %; Eosinophils # (A) 0.2 k/uL (0-0.7); Eosinophils % (A) 1 %; HCT 42.1 % (34.0-46.0); HGB 13.5 gm/dL (11.4-16.0); Lymphocytes # (A) 2.7 k/uL (1.0-4.8); Lymphocytes % (A) 19 %; MCHC 32.1 g/dL (31.0-37.0); MCV 93.7 fL (80.0-100.0); Mean Platelet Volume 7.9; Monocytes # (A) 0.7 k/uL (0-1.0); Monocytes % (A) 5 %; Neutrophils % (A) 72 %; Platelet Count 187 k/uL (150-450); RBC 4.49 m/uL (3.80-5.40); RDW 12.6 % (11.5-15.5); WBC 13.8 k/uL (3.8-10.6)
[2019-08-08] MEDS ORDERED: LACTATED RINGERS 1,000 ML IV ONE (10:31)
[2019-08-08] MEDS ORDERED: LIDOCAINE 1% 20 ML VIAL (10MG/ML) FOR IV START INTRADERMA ONE (10:31)
--- NOTE | 2019-08-08 11:18 | P.PN ---
Subjective Progress Note Date: 08/08/19 This is a 24-year-old female patient of Dr. Chiang with past medical history of migraine headaches, ADHD, history of I&D leftt groin abscess. Patient complains of abscess under her right arm for 2 days along with fever and pain, pain became unbearable. She contacted Dr. Chiang's office and a prescription for Bactrim was called for her. She took 1 dose last evening at 8 PM but due to excruciating pain and fevers, patient came into emergency center for evaluation. Patient gives history of having a previous abscess and the groin that was I&D by Dr. Rosario one and half years ago. She denies any history of MRSA. Patient states that she tried to drain this abscess on her own. Patient was evaluated and [facility] emergency center. Patient was found to have a temperature of 101.3, tachycardia, blood pressure 135/85, leukocytosis 16.8, lactic acid 1.4. Other lab work unremarkable. Urinalysis trace blood, leukoesterase small. EKG was a sinus rhythm with no acute ST-T wave changes. She was given 3 L of IV fluids, Rocephin. Patient was ordered for an admission to the [facility] floor and consult with Dr. Byrne. Patient is currently nothing by mouth. 08/08: Ultrasound of the right axilla revealed cellulitis and subcutaneous 13 monos change with subcutaneous edema and hyperemia. No current demarcated sizable drainable abscess. Patient has been afebrile since 1300 yesterday. Heart rate 83, blood pressure 118/70, pulse ox 97% on room air. Repeat WBC 13.8. Patient has not undergone I&D at this point. Patient be reevaluated today by Dr. Byrne. Patient states that area has started to drain. Wound culture to be obtained. Site appears to be smaller from yesterday. Consult added for Dr. Hermosillo. Blood culture shows no growth at 24 hours. Review of Systems Constitutional: Reports chills, denies fatigue, Reports fever, Reports poor appetite, Denies weakness Eyes: denies blurred vision, denies pain Ears, nose, mouth and throat: Denies dysphagia, Denies headache, Denies nasal congestion, Denies nasal discharge, Denies sore throat, Denies vertigo Cardiovascular: Denies chest pain, Denies decreased exercise tolerance, Denies dyspnea on exertion, Denies edema, Denies leg edema, Denies lightheadedness, Denies shortness of breath, Denies syncope Respiratory: Denies cough, Denies cough with sputum, Denies dyspnea, Denies excessive sputum, Denies hemoptysis, Denies home oxygen, Denies respiratory in fections, Denies sleep apnea, Denies wheezing Gastrointestinal: Denies abdominal pain, Denies diarrhea, Denies nausea, Denies vomiting Genitourinary: Denies dysuria, Denies hematuria, Denies urgency, Denies urinary frequency Musculoskeletal: Denies frequent falls, Denies gait dysfunction, Denies muscle weakness, Denies myalgias Integumentary: Reports boils, Reports wounds, reports drainage, Denies pruritus, Denies rash Neurological: Denies change in mentation, Denies change in speech, Denies numbness, Denies weakness Psychiatric: Denies anxiety, Denies depression Endocrine: Denies fatigue, Denies weight change Objective - Vital Signs Vital signs: Vital Signs Temp 98.3 F 08/08/19 05:20 Pulse 83 08/08/19 05:20 Resp 20 08/08/19 05:20 BP 118/70 08/08/19 05:20 Pulse Ox 97 08/08/19 05:20 Intake & Output 08/07/19 08/08/19 08/08/19 18:59 06:59 18:59 Intake Total 1080 Balance 1080 Weight 78.925 kg Intake: Intake, IV Titration 600 Amount Sodium Chloride 0.9% 1, 600 000 ml @ 75 mls/hr IV . [id number] [facility] Rx#:[id number] Oral 480 Other: Voiding Method Toilet # Voids 3 1 - Exam Gen: This is a 24-year-old female. Patient is resting in bed and appears to be comfortable and in no acute distress HEENT: Head is atraumatic, normocephalic. Pupils equal, round. Sclerae is anicteric. NECK: Supple. No JVD. No lymphadenopathy. No thyromegaly. LUNGS: Clear to auscultation. No wheezes or rhonchi. No intercostal retractions. HEART: Regular rate and rhythm. No murmur. Axillary: Firm area in the right axilla area with surrounding erythema. Mild drainage. ABDOMEN: Soft. Bowel sounds are present. No masses. No tenderness. EXTREMITIES: No pedal edema. No calf tenderness. NEUROLOGICAL: Patient is awake, alert and oriented x3. Cranial nerves 2 through 12 are grossly intact. - Labs CBC & Chem 7: 08/08/19 08:31 08/07/19 03:50 Labs: Microbiology - Last 24 Hours (Table) 08/07/19 03:50 Blood Culture - Preliminary Blood No Growth after 24 hours Assessment and Plan Plan: 1. Sepsis secondary to right axillary abscess. History of previous abscess with MSSA according to patient. Status post IV fluid resuscitation of 3 L, continue ceftriaxone, consult with Dr. Byrne, wound culture to be obtained, daptomycin added, consult with Dr. Hermosillo added. 2. History of migraine headaches, stable. 3. Nausea possibly related to pain medication, GERD. Patient started on Zofran and Protonix. 4. Gastrointestinal prophylaxis. Protonix. 5. DVT prophylaxis. SCDs and LALI hose. Discharge plan: Return home Impression and plan of care have been directed as dictated by the signing physician. Nedra Leroy nurse practitioner acting as scribe for signing physician.
--- NOTE | 2019-08-08 11:45 | P.CONS ---
<Nedra Leroy A - Last Filed: 08/08/19 11:18> History of Present Illness - Reason for Consult Consult date: 08/08/19 abscess - History of Present Illness This is a 24-year-old female patient with past medical history of migraine headaches, ADHD, history of I&D left groin abscess. Patient complains of abscess under her right arm for 2 days along with fever and pain, pain became unbearable. She contacted Dr. Chiang's office and a prescription for Kiki trim was called for her. She took 1 dose evening at 8 PM but due to excruciating pain and fevers, patient came into emergency center for evaluation. Patient gives history of having a previous abscess in the groin that was I&D'd by Dr. Rosario one and half years ago. She denies any history of MRSA. Patient states that she tried to drain this abscess on her own. Patient was evaluated and [facility] emergency center. Patient was found to have a temperature of 101.3, tachycardia, blood pressure 135/85, leukocytosis 16.8, lactic acid 1.4. Other lab work unremarkable. Urinalysis trace blood, leukoesterase small. EKG was a sinus rhythm with no acute ST-T wave changes. She was given 3 L of IV fluids, Rocephin was started. Ultrasound of the right axilla revealed cellulitis and subcutaneous phlegmonous change with subcutaneous edema and hyperemia. No current demarcated sizable drainable abscess. Patient has been afebrile since 1300 yesterday. Heart rate 83, blood pressure 118/70, pulse ox 97% on room air. Repeat WBC improved at 13.8. Patient has not undergone I&D at this point. Patient be reevaluated today by Dr. Byrne. Patient states that area has started to drain. Wound culture to be obtained. Blood culture shows no growth at 24 hours. Review of Systems Constitutional: Reports chills, denies fatigue, Reports fever, Reports poor appetite, Denies weakness Eyes: denies blurred vision, denies pain Ears, nose, mouth and throat: Denies dysphagia, Denies headache, Denies nasal congestion, Denies nasal discharge, Denies sore throat, Denies vertigo Cardiovascular: Denies chest pain, Denies decreased exercise tolerance, Denies dyspnea on exertion, Denies edema, Denies leg edema, Denies lightheadedness, Denies shortness of breath, Denies syncope Respiratory: Denies cough, Denies cough with sputum, Denies dyspnea, Denies excessive sputum, Denies hemoptysis, Denies home oxygen, Denies respiratory infections, Denies sleep apnea, Denies wheezing Gastrointestinal: Denies abdominal pain, Denies diarrhea, Denies nausea, Denies vomiting Genitourinary: Denies dysuria, Denies hematuria, Denies urgency, Denies urinary frequency Musculoskeletal: Denies frequent falls, Denies gait dysfunction, Denies muscle weakness, Denies myalgias Integumentary: Reports boils, Reports wounds, reports drainage, Denies pruritus, Denies rash Neurological: Denies change in mentation, Denies change in speech, Denies numbness, Denies weakness Psychiatric: Denies anxiety, Denies depression Endocrine: Denies fatigue, Denies weight change Past Medical History Past Medical History: Neurologic Disorder, Skin Disorder Additional Past Medical History / Comment(s): MIGRAINE Headaches. PSORIASIS. History of Any Multi-Drug Resistant Organisms: None Reported Past Surgical History: Cholecystectomy Additional Past Surgical History / Comment(s): [place] teeth removal. I&D LT GROIN ABSCESS. Past Anesthesia/Blood Transfusion Reactions: No Reported Reaction, Family History of Problems w/ Anesthesia Additional Past Anesthesia/Blood Transfusion Reaction / Comm: FATHER AWAKENED DURING SURG Smoking Status: Former smoker Additional Past Alcohol Use History / Comment(s): Patient was a smoker of a half a pack per day starting in 2008 and quit in 2019. 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 - Past Family History Father Family Medical History: Cancer Additional Family Medical History / Comment(s): Father at age 50 from Brain CA with assosiated seizures/stroke. Mother Family Medical History: Hypertension Additional Family Medical History / Comment(s): Mother is alive with history of hypertension, fibromyalgia. Sister(s) Family Medical History: Rheumatoid Arthritis (RA), Thyroid Disorder Additional Family Medical History / Comment(s): Patient has a total of 6 siblings with no major medical problems. Patient does not have any children. Brother(s) History Unknown: Yes Medications and Allergies Home Medications Medication Instructions Recorded Confirmed Type Dextroamphetamine/Amphetamine 20 mg PO BID@0600,1200 05/07/19 08/07/19 History [Adderall] Etonogestrel/Ethinyl Estradiol 1 ring VG Q21D 08/07/19 08/07/19 History [Nuvaring Vaginal Ring] Sulfamethox-Tmp 800-160Mg [Bactrim 1 tab PO Q12HR 08/07/19 08/07/19 History DS 800-160 mg] Allergies Allergy/AdvReac Type Severity Reaction Status Date / Time amoxicillin Allergy Anaphylaxis Verified 08/08/19 10:25 egg Allergy Nausea & Verified 08/08/19 10:25 Vomiting Latex, Natural Rubber Allergy Anaphylaxis Verified 08/08/19 10:25 Penicillins Allergy Anaphylaxis Verified 08/08/19 10:25 sulfamethoxazole Allergy Swelling Verified 08/08/19 10:25 [From Bactrim] trimethoprim [From Bactrim] Allergy Swelling Verified 08/08/19 10:25 vancomycin Allergy Swelling, Verified 08/08/19 10:25 ITCHING acetaminophen [From Vicodin] AdvReac Itching Verified 08/08/19 10:25 hydrocodone [From Vicodin] AdvReac Itching Verified 08/08/19 10:25 Physical Exam Vitals: Vital Signs Temp Pulse Resp BP Pulse Ox 08/08/19 05:20 98.3 F 83 20 118/70 97 08/07/19 23:48 96 18 08/07/19 22:25 97.9 F 100 18 108/68 97 08/07/19 20:00 91 17 08/07/19 19:20 95 18 08/07/19 14:00 99.1 F 08/07/19 13:28 102.1 F H 91 17 113/61 100 08/07/19 08:22 99.2 F 93 16 237/74 97 Intake and Output 08/07/19 08/08/19 08/08/19 22:59 06:59 14:59 Intake Total 630 450 Balance 630 450 Intake: Intake, IV Titration 150 450 Amount Sodium Chloride 0.9% 1, 150 450 000 ml @ 75 mls/hr IV . [id number] [facility] Rx#:[id number] Oral 480 Other: Voiding Method Toilet Toilet # Voids 1 1 Gen: This is a 24-year-old female. Patient is resting in bed and appears to be comfortable and in no acute distress HEENT: Head is atraumatic, normocephalic. Pupils equal, round. Sclerae is anicteric. NECK: Supple. No JVD. No lymphadenopathy. No thyromegaly. LUNGS: Clear to auscultation. No wheezes or rhonchi. No intercostal retractions. HEART: Regular rate and rhythm. No murmur. Axillary: Firm area in the right axilla area with surrounding erythema. Mild drainage. ABDOMEN: Soft. Bowel sounds are present. No masses. No tenderness. EXTREMITIES: No pedal edema. No calf tenderness. NEUROLOGICAL: Patient is awake, alert and oriented x3. Cranial nerves 2 through 12 are grossly intact. Results CBC & Chem 7: 08/08/19 08:31 08/07/19 03:50 Labs: Microbiology - Last 24 Hours (Table) 08/07/19 03:50 Blood Culture - Preliminary Blood No Growth after 24 hours Assessment and Plan Plan: This is a 24-year-old female patient presented with signs of sepsis secondary to right axillary cellulitis, possible abscess. History of previous abscess with MSSA according to patient. Status post IV fluids, continue ceftriaxone and daptomycin. Dr. Byrne on consult, wound culture to be obtained, blood culture no growth at 24 hours. Continue supportive care. Further recommendations to follow based on clinical course. The above dictated assessment and findings were discussed with Dr. Hermosillo. The i mpression and plan of care have been directed as dictated. Nedra Leroy nurse practitioner acting as scribe for Dr. Hermosillo. <Kandi Hermosillo - Last Filed: 08/08/19 22:34> Physical Exam Vitals: Vital Signs Temp Pulse Pulse Resp BP BP Pulse Ox 08/08/19 15:13 16 08/08/19 13:34 98.4 F 79 16 100/64 98 08/08/19 13:11 68 16 108/71 98 08/08/19 12:56 73 16 116/66 100 08/08/19 12:41 97.8 F 84 12 111/68 99 08/08/19 10:30 97.5 F L 64 16 125/71 98 08/08/19 08:00 20 08/08/19 05:20 98.3 F 83 20 118/70 97 08/07/19 23:48 96 18 Intake and Output 08/08/19 08/08/19 08/08/19 06:59 14:59 22:59 Intake Total 450 2395 Output Total 5 Balance 450 2390 Intake: IV 1075 Intake, IV Titration 450 Amount Sodium Chloride 0.9% 1, 450 000 ml @ 75 mls/hr IV . [id number] [facility] Rx#:[id number] Oral 1320 Output: Estimated Blood Loss 5 Other: Voiding Method Toilet Toilet Toilet # Voids 1 3 Weight 78.93 kg Results CBC & Chem 7: 08/08/19 08:31 08/07/19 03:50 Labs: Abnormal Lab Results - Last 24 Hours (Table) 08/08/19 Range/Units 08:31 WBC 13.8 H (3.8-10.6) k/uL Neutrophils # 10.0 H (1.3-7.7) k/uL Microbiology - Last 24 Hours (Table) 08/07/19 03:50 Blood Culture - Preliminary Blood No Growth after 24 hours Assessment and Plan Plan: Patient was seen and examined personally nurse practitioner note was reviewed and agree with the finding. 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 Vancomycin pharmacy to dose her with a target trough of 15 while watching her kidney function and Vanco trough closely. We will follow on clinical condition and cultures to further adjust medication if needed Thank you for this consultation we will follow the patient along with you Time with Patient: Greater than 30
[2019-08-08] MEDS ORDERED: PROPOFOL 10 MG/ML 20 ML VIAL IV ONE (11:53)
[2019-08-08] MEDS ORDERED: LIDOCAINE 1% INJ 10MG/ML (20 ML MDV) ONE (11:53)
[2019-08-08] MEDS ORDERED: MIDAZOLAM 2 MG/2 ML VIAL ONE (11:53)
[2019-08-08] MEDS ORDERED: fentaNYL (PF) 50 MCG/ML 2 ML AMP ONE (11:53)
[2019-08-08] MEDS: DAPTOmycin 500 MG in SODIUM CHLORIDE 0.9% 50 ML IVPB SCH ×2 (12:09→13:34)
[2019-08-08] MEDS ORDERED: BUPIVACAINE (PF) 0.25% 30 ML VIAL SQ ONE (12:16)
--- NOTE | 2019-08-08 12:58 | P.OP ---
Date of Procedure: 08/08/19 Procedure(s) Performed: PREOPERATIVE DIAGNOSIS: Right axillary abscess POSTOPERATIVE DIAGNOSIS: Right axillary abscess 2 PROCEDURE: Incision and drainage right axillary abscess 2 SURGEON: Chavez EBL: 10 mL ANESTHESIA: General COMPLICATIONS: None OPERATIVE PROCEDURE: Patient placed under general anesthesia. Right axilla prepped and draped sterilely. The patient had a area of erythema and fluctuance measuring 1.5 x 1 cm. An elliptical incision was made overlying this and a small subcutaneous abscess cavity was encountered. Further blunt dissection was performed to see if there was a deeper collection and none were encountered. Cultures were taken from the purulent fluid. Bleeding was controlled with electrocautery. An additional smaller abscess measuring less than 1 cm was present in the anterior aspect of the axilla. A small linear incision was made overlying this and the purulent fluid was evacuated. Both areas irrigated with saline. Both areas localized. Both packed with iodoform gauze. Sterile outer dressing applied. DISPOSITION: Stable to recovery room
[2019-08-08] MEDS: LACTATED RINGERS 1,000 ML IV SCH (15:04)
[2019-08-08] MEDS: KETOROLAC 30 MG/ML 1 ML VIAL IVP PRN ×2 (16:22→23:12)
[2019-08-09] MEDS: PANTOPRAZOLE 40 MG/10 ML VIAL IVP SCH (08:09)
[2019-08-09] MEDS: KETOROLAC 30 MG/ML 1 ML VIAL IVP PRN ×3 (08:13→23:54)
[2019-08-09] MEDS: DAPTOmycin 500 MG in SODIUM CHLORIDE 0.9% 50 ML IVPB SCH (09:14)
[2019-08-09 10:11] LABS: Basophils # (A) 0.1 k/uL (0-0.2); Basophils % (A) 1 %; Eosinophils # (A) 0.2 k/uL (0-0.7); Eosinophils % (A) 2 %; HCT 40.7 % (34.0-46.0); HGB 13.2 gm/dL (11.4-16.0); Lymphocytes # (A) 2.5 k/uL (1.0-4.8); Lymphocytes % (A) 25 %; MCH 30.5 pg (25.0-35.0); MCHC 32.4 g/dL (31.0-37.0); MCV 94.1 fL (80.0-100.0); Mean Platelet Volume 8.9; Monocytes # (A) 0.5 k/uL (0-1.0); Monocytes % (A) 5 %; Neutrophils # (A) 6.6 k/uL (1.3-7.7); Neutrophils % (A) 67 %; Platelet Count 189 k/uL (150-450); RBC 4.32 m/uL (3.80-5.40); RDW 12.4 % (11.5-15.5); WBC 9.9 k/uL (3.8-10.6)
--- NOTE | 2019-08-09 11:37 | P.PN ---
<Ana Gutierrez - Last Filed: 08/09/19 11:34> Subjective Progress Note Date: 08/09/19 CHIEF COMPLAINT: axilla abscess HISTORY OF PRESENT ILLNESS: Patient is status post incision and drainage of right axillary abscess 2. Postoperative day #1. Patient examined at the bedside. Patient states her pain to her right axilla is improved today. Vital signs stable. She is afebrile. WBC 9.9. PHYSICAL EXAM: VITAL SIGNS: Reviewed. GENERAL: Well-developed in no acute distress. HEENT: No sclera icterus. Extraocular movements grossly intact. Moist buccal mucosa. Head is atraumatic, normocephalic. ABDOMEN: Soft. Nondistended. Nontender. NEUROLOGIC: Alert and oriented. Cranial nerves II through XII grossly intact. SKIN: Dressing to right axilla clean dry intact. Packing noted to incisions x 2 with serosanguineous drainage. ASSESSMENT: 1. Right axilla abscess 2. History of left groin abscess requiring incision and drainage, 2018 PLAN: -Continue diet as tolerated -Local wound care to surgical sites with iodophor daily -Await cultures. Infectious disease following. Continue antibiotics. Nurse practitioner note has been reviewed by physician. Signing provider agrees with the documented findings, assessment, and plan of care. Objective - Vital Signs Vital signs: Vital Signs Temp 98.2 F 08/09/19 07:20 Pulse 79 08/09/19 07:20 Resp 16 08/09/19 08:00 BP 106/72 08/09/19 07:20 Pulse Ox 98 08/09/19 07:20 Intake & Output 08/08/19 08/09/19 08/09/19 18:59 06:59 18:59 Intake Total 2395 300 Output Total 5 Balance 2390 300 Weight 78.93 kg Intake: IV 1075 Oral 1320 300 Output: Estimated Blood Loss 5 Other: Voiding Method Toilet Toilet Toilet # Voids 3 1 - Labs CBC & Chem 7: 08/09/19 08:30 08/07/19 03:50 Labs: Microbiology - Last 24 Hours (Table) 08/08/19 12:30 Gram Stain - Preliminary Axilla - Right Wound Culture - Preliminary 08/07/19 03:50 Blood Culture - Preliminary Blood No Growth after 48 hours 08/08/19 12:30 Anaerobic Culture - Preliminary Axilla - Right <Boutt,Ward - Last Filed: 08/09/19 14:36> Subjective As above. Patient doing well. Pain is improved. Stable for discharge from my standpoint. Objective - Vital Signs Vital signs: Vital Signs Temp 98.5 F 08/09/19 13:38 Pulse 69 08/09/19 13:38 Resp 16 08/09/19 13:38 BP 110/70 08/09/19 13:38 Pulse Ox 97 08/09/19 13:38 Intake & Output 08/08/19 08/09/19 08/09/19 18:59 06:59 18:59 Intake Total 2395 300 Output Total 5 Balance 2390 300 Weight 78.93 kg Intake: IV 1075 Oral 1320 300 Output: Estimated Blood Loss 5 Other: Voiding Method Toilet Toilet Toilet # Voids 3 1 - Labs CBC & Chem 7: 08/09/19 08:30 08/07/19 03:50 Labs: Microbiology - Last 24 Hours (Table) 08/08/19 12:30 Gram Stain - Preliminary Axilla - Right Wound Culture - Preliminary 08/07/19 03:50 Blood Culture - Preliminary Blood No Growth after 48 hours 08/08/19 12:30 Anaerobic Culture - Preliminary Axilla - Right
--- NOTE | 2019-08-09 14:53 | P.PN ---
Subjective Progress Note Date: 08/09/19 This is a 24-year-old female patient of Dr. Chiang with past medical history of migraine headaches, ADHD, history of I&D leftt groin abscess. Patient complains of abscess under her right arm for 2 days along with fever and pain, pain became unbearable. She contacted Dr. Chiang's office and a prescription for Bactrim was called for her. She took 1 dose last evening at 8 PM but due to excruciating pain and fevers, patient came into emergency center for evaluation. Patient gives history of having a previous abscess and the groin that was I&D by Dr. Rosario one and half years ago. She denies any history of MRSA. Patient states that she tried to drain this abscess on her own. Patient was evaluated and [facility] emergency center. Patient was found to have a temperature of 101.3, tachycardia, blood pressure 135/85, leukocytosis 16.8, lactic acid 1.4. Other lab work unremarkable. Urinalysis trace blood, leukoesterase small. EKG was a sinus rhythm with no acute ST-T wave changes. She was given 3 L of IV fluids, Rocephin. Patient was ordered for an admission to the [facility] floor and consult with Dr. Byrne. Patient is currently nothing by mouth. 08/08: Ultrasound of the right axilla revealed cellulitis and subcutaneous 13 monos change with subcutaneous edema and hyperemia. No current demarcated sizable drainable abscess. Patient has been afebrile since 1300 yesterday. Heart rate 83, blood pressure 118/70, pulse ox 97% on room air. Repeat WBC 13.8. Patient has not undergone I&D at this point. Patient be reevaluated today by Dr. Byrne. Patient states that area has started to drain. Wound culture to be obtained. Site appears to be smaller from yesterday. Consult added for Dr. Hermosillo. Blood culture shows no growth at 24 hours. 08/09: Yesterday, patient underwent incision and drainage of right axillary abscess 2 with removal of purulent material, cultures obtained. Both wounds were packed with iodoform gauze. Patient has also been seen by Dr. Hermosillo. Patient remains afebrile, heart rate 76, blood pressure 111/75, pulse ox 100% on room air. Repeat CBC reveals white count of 9.9. Blood culture reveals no growth at 48 hours and wound cultures are in progress. Anticipate possible discharge tomorrow once culture reports are available. Patient states she is feeling a little bit better today. Review of Systems Constitutional: Reports chills, denies fatigue, Reports fever, Reports poor appetite, Denies weakness Ears, nose, mouth and throat: Denies dysphagia, Denies headache, Denies nasal congestion, Denies nasal discharge, Denies sore throat, Denies vertigo Cardiovascular: Denies chest pain, Denies decreased exercise tolerance, Denies dyspnea on exertion, Denies edema, Denies leg edema, Denies lightheadedness, Denies shortness of breath, Denies syncope Respiratory: Denies cough, Denies cough with sputum, Denies dyspnea, Denies excessive sputum, Denies hemoptysis, Denies home oxygen, Denies respiratory infections, Denies sleep apnea, Denies wheezing Gastrointestinal: Denies abdominal pain, Denies diarrhea, Denies nausea, Denies vomiting Genitourinary: Denies dysuria, Denies hematuria, Denies urgency, Denies urinary frequency Musculoskeletal: Denies frequent falls, Denies gait dysfunction, Denies muscle weakness, Denies myalgias Integumentary: Reports boils, Reports wounds, reports drainage, Denies pruritus, Denies rash Neurological: Denies change in mentation, Denies change in speech, Denies numbness, Denies weakness Psychiatric: Denies anxiety, Denies depression Endocrine: Denies fatigue, Denies weight change Objective - Vital Signs Vital signs: Vital Signs Temp 97.8 F 08/08/19 21:00 Pulse 76 08/08/19 21:00 Resp 18 08/08/19 21:00 BP 111/75 08/08/19 21:00 Pulse Ox 100 08/08/19 21:00 Intake & Output 08/08/19 08/09/19 08/09/19 18:59 06:59 18:59 Intake Total 2395 300 Output Total 5 Balance 2390 300 Weight 78.93 kg Intake: IV 1075 Oral 1320 300 Output: Estimated Blood Loss 5 Other: Voiding Method Toilet Toilet # Voids 3 1 - Exam Gen: This is a 24-year-old female. Patient is resting in bed and appears to be comfortable and in no acute distress HEENT: Head is atraumatic, normocephalic. Pupils equal, round. Sclerae is anicteric. NECK: Supple. No JVD. No lymphadenopathy. No thyromegaly. LUNGS: Clear to auscultation. No wheezes or rhonchi. No intercostal retractions. HEART: Regular rate and rhythm. No murmur. Axillary: Dressing in place with serosanguineous drainage right axillary. ABDOMEN: Soft. Bowel sounds are present. No masses. No tenderness. EXTREMITIES: No pedal edema. No calf tenderness. NEUROLOGICAL: Patient is awake, alert and oriented x3. Cranial nerves 2 through 12 are grossly intact. - Labs CBC & Chem 7: 08/09/19 08:30 08/07/19 03:50 Labs: Abnormal Lab Results - Last 24 Hours (Table) 08/08/19 Range/Units 08:31 WBC 13.8 H (3.8-10.6) k/uL Neutrophils # 10.0 H (1.3-7.7) k/uL Microbiology - Last 24 Hours (Table) 08/07/19 03:50 Blood Culture - Preliminary Blood No Growth after 48 hours 08/08/19 12:30 Anaerobic Culture - Preliminary Axilla - Right 08/08/19 12:30 Wound Culture - Preliminary Axilla - Right Assessment and Plan Plan: 1. Sepsis secondary to right axillary abscess 2, status post incision and drainage done by Dr. Byrne on August 08. History of previous abscess with MSSA according to patient. There is concern for MRSA. Status post IV fluid resuscitation of 3 L, continue ceftriaxone and daptomycin, consult with Dr. Bay demarco. 2. History of migraine headaches, stable. 3. Nausea possibly related to pain medication, GERD. Patient started on Zofran and Protonix. 4. Gastrointestinal prophylaxis. Protonix. 5. DVT prophylaxis. SCDs and LALI hose. Discharge plan: Return home possibly Tuesday Impression and plan of care have been directed as dictated by the signing physician. Nedra Leroy nurse practitioner acting as scribe for signing physician.
[2019-08-09] MEDS: PANTOPRAZOLE 40 MG TABLET PO SCH (17:16)
[2019-08-09] MEDS: ACETAMINOPHEN TAB 325 MG TAB PO PRN (21:35)
--- NOTE | 2019-08-10 05:44 | PN ---
PROGRESS NOTE DATE OF SERVICE: 08/09/2019 REASON FOR FOLLOWUP: Right axillary abscess. INTERVAL HISTORY: The patient is currently afebrile. Patient has been breathing comfortably. Pain to the right axilla is currently controlled. Denies having any chest pain, shortness of breath or cough. No nausea or vomiting. No abdominal pain or diarrhea. PHYSICAL EXAMINATION: Blood pressure 108/73 with a pulse of 63, temperature 98.6. She is 98% on room air. General description is a middle-aged female, lying in bed in no distress. RESPIRATORY SYSTEM: Unlabored breathing, clear to auscultation anteriorly. HEART: S1, S2. Regular rate and rhythm. RIGHT AXILLARY AREA WOUND: Significant deep, no purulence was noticed, changes. LABS: Hemoglobin 13.2, white count 9.9. Wound culture with presumptive Staph aureus. Blood culture had been negative. DIAGNOSTIC IMPRESSION AND PLAN: Patient with right axillary abscess, culture with presumptive Staph aureus, waiting for sensitivity. Patient is covered with daptomycin and Rocephin. Hopefully finish therapy with oral antibiotics. Local care with Aquacel Silver packing with close outpatient followup. MMODL / IJN: [id number] /
[2019-08-10 06:06] VITALS: BP 107/68; PULSE 59; RESP 18; TEMP 97.9
[2019-08-10] MEDS: PANTOPRAZOLE 40 MG TABLET PO SCH (07:46)
[2019-08-10] MEDS: DAPTOmycin 500 MG in SODIUM CHLORIDE 0.9% 50 ML IVPB SCH (09:29)
--- NOTE | 2019-08-10 14:22 | P.DS ---
Providers Date of admission: 08/09/19 09:17 Expected date of discharge: 08/10/19 Attending physician: Antonio Lind Consults: 08/07/19 05:33 Consult Physician Urgent Consulting Provider: Ward Byrne Consult Reason/Comments: abscess in axilla Do you want consulting provider notified?: Yes, Notify in am 08/08/19 08:16 Consult Physician Routine Consulting Provider: Kandi Hermosillo Consult Reason/Comments: abscess Do you want consulting provider notified?: Yes Primary care physician: Reed Chiang [facility] Course: This is a 24-year-old female patient of Dr. Chiang with past medical history of migraine headaches, ADHD, history of I&D leftt groin abscess. Patient complains of abscess under her right arm for 2 days along with fever and pain, pain became unbearable. She contacted Dr. Chiang's office and a prescription for Bactrim was called for her. She took 1 dose last evening at 8 PM but due to excruciating pain and fevers, patient came into emergency center for evaluation. Patient gives history of having a previous abscess and the groin that was I&D by Dr. Rosario one and half years ago. She denies any history of MRSA. Patient states that she tried to drain this abscess on her own. Patient was evaluated and [facility] emergency center. Patient was found to have a temperature of 101.3, tachycardia, blood pressure 135/85, leukocytosis 16.8, lactic acid 1.4. Other lab work unremarkable. Urinalysis trace blood, leukoesterase small. EKG was a sinus rhythm with no acute ST-T wave changes. She was given 3 L of IV fluids, Rocephin. Patient was ordered for an admission to the [facility] floor and consult with Dr. Byrne. Patient is currently nothing by mouth. 08/08: Ultrasound of the right axilla revealed cellulitis and subcutaneous 13 monos change with subcutaneous edema and hyperemia. No current demarcated sizable drainable abscess. Patient has been afebrile since 1300 yesterday. Heart rate 83, blood pressure 118/70, pulse ox 97% on room air. Repeat WBC 13.8. Patient has not undergone I&D at this point. Patient be reevaluated today by Dr. Byrne. Patient states that area has started to drain. Wound culture to be obtained. Site appears to be smaller from yesterday. Consult added for Dr. Hermosillo. Blood culture shows no growth at 24 hours. 08/09: Yesterday, patient underwent incision and drainage of right axillary abscess 2 with removal of purulent material, cultures obtained. Both wounds were packed with iodoform gauze. Patient has also been seen by Dr. Hermosillo. Patient remains afebrile, heart rate 76, blood pressure 111/75, pulse ox 100% on room air. Repeat CBC reveals white count of 9.9. Blood culture reveals no growth at 48 hours and wound cultures are in progress. Anticipate possible discharge tomorrow once culture reports are available. Patient states she is feeling a little bit better today. 08/10: Discharge diagnoses: 1. Sepsis secondary to right axillary abscess 2, status post incision and drainage done by Dr. Byrne on August 08. 2. History of migraine headaches, stable. 3. Nausea possibly related to pain medication, GERD. Discharge plan: Return home Impression and plan of care have been directed as dictated by the signing physician. Nedra Leroy nurse practitioner acting as scribe for signing physician. Patient Condition at Discharge: Good Plan - Discharge Summary New Discharge Prescriptions: No Action Dextroamphetamine/Amphetamine [Adderall] 20 mg PO BID@0600,1200 Etonogestrel/Ethinyl Estradiol [Nuvaring Vaginal Ring] 1 ring VG Q21D Sulfamethox-Tmp 800-160Mg [Bactrim DS 800-160 mg] 1 tab PO Q12HR Discharge Medication List Dextroamphetamine/Amphetamine [Adderall] 20 mg PO BID@0600,1200 05/07/19 [History] Etonogestrel/Ethinyl Estradiol [Nuvaring Vaginal Ring] 1 ring VG Q21D 08/07/19 [History] Sulfamethox-Tmp 800-160Mg [Bactrim DS 800-160 mg] 1 tab PO Q12HR 08/07/19 [History] Follow up Appointment(s)/Referral(s): Ward Byrne MD [Medical Doctor] - 1 Week Reed Chiang DO [Primary Care Provider] - 1 Week (Pt prefers to make her own appointments) Patient Instructions/Handouts: Incision and Drainage (DC) Activity/Diet/Wound Care/Special Instructions: Wound care as instructed by Dr Byrne. Off work until rechecked by Dr. Chiang Regular diet Activity as tolerated Discharge Disposition: HOME SELF-CARE
== END 2019-08-10 09:49 | disposition home or self-care (01) | DRG 872 ==
LOC: EC 02:16 → 5NMEDONC 05:34 → 6NMEDSUR 17:18 → OBSVTOIN 08-09 09:17
PROVIDERS: ADMIT Internal Medicine Geriatric Medicine; ATTEND Internal Medicine Geriatric Medicine
PROC: 0X940ZZ Drainage of Right Axilla, Open Approach (ICD-10-PCS; principal; 2019-08-08 07:30)
DX: A41.02 Sepsis due to Methicillin resistant Staphylococcus aureus (principal); L02.411 Cutaneous abscess of right axilla; L03.111 Cellulitis of right axilla; G43.909 Migraine, unspecified, not intractable, without status migrainosus; F90.9 Attention-deficit hyperactivity disorder, unspecified type; L40.9 Psoriasis, unspecified; E66.9 Obesity, unspecified; K21.9 Gastro-esophageal reflux disease without esophagitis; R11.0 Nausea; F32.9 Major depressive disorder, single episode, unspecified; F41.9 Anxiety disorder, unspecified; T40.2X5A Adverse effect of other opioids, initial encounter; Z68.30 Body mass index [BMI] 30.0-30.9, adult; Z79.899 Other long term (current) drug therapy; Z79.3 Long term (current) use of hormonal contraceptives; Z86.19 Personal history of other infectious and parasitic diseases; Z98.890 Other specified postprocedural states; Z90.49 Acquired absence of other specified parts of digestive tract; Z87.891 Personal history of nicotine dependence; Z88.5 Allergy status to narcotic agent; Z88.0 Allergy status to penicillin; Z88.2 Allergy status to sulfonamides; Z88.6 Allergy status to analgesic agent; Z88.1 Allergy status to other antibiotic agents; Z91.012 Allergy to eggs; Z91.040 Latex allergy status; Z82.3 Family history of stroke; Z80.8 Family history of malignant neoplasm of other organs or systems; Z82.49 Family history of ischemic heart disease and other diseases of the circulatory system; Z82.61 Family history of arthritis; Z83.49 Family history of other endocrine, nutritional and metabolic diseases; Z82.69 Family history of other diseases of the musculoskeletal system and connective tissue
CPT/HCPCS: 36415; 80053; 81001; 81025; 83605; 85025; 85610; 85730; 87040; 87070; 87075; 87077; 87186; 87205; 93005; 96361; 96374; 96375; 96376; 99285

== ENCOUNTER 2024-12-28 19:46 | Emergency (ER) | payer BC ==
[2024-12-28 20:12] VITALS: BP 100/79; PULSE 96; RESP 18; TEMP 99.3
--- NOTE | 2024-12-28 22:26 | ED ---
Abdominal Pain HPI - General Chief Complaint: Abdominal Pain Stated Complaint: Fever,Abd Pain Time Seen by Provider: 12/28/24 20:30 Source: patient, RN notes reviewed Mode of arrival: ambulatory Limitations: no limitations - History of Present Illness Initial Comments: Quick Note: This is a 29-year-old female who presents to the emergency department for abdominal pain. States that for the last 2 to 3 days she has had generalized pain in her abdomen with associated nausea and fevers. Denies any changes in bowel or bladder habits. Denies any history of similar pain in the past. MD Complaint: abdominal pain - Related Data Home Medications Medication Instructions Recorded Confirmed Dextroamphetamine/Amphetamine 20 mg PO BID@0600,1200 05/07/19 08/07/19 [Adderall] Etonogestrel/Ethinyl Estradiol 1 ring VG Q21D 08/07/19 08/07/19 [Nuvaring Vaginal Ring] Sulfamethox-Tmp 800-160Mg [Bactrim 1 tab PO Q12HR 08/07/19 08/07/19 DS 800-160 mg] Previous Rx's Medication Instructions Recorded Doxycycline [Vibramycin] 100 mg PO BID #20 capsule 09/08/24 Doxycycline [Vibramycin] 100 mg PO BID 10 Days #20 capsule 09/08/24 Mupirocin 2% Oint [Bactroban 2% 1 applic TOPICAL BID #22 gm 09/08/24 Oint] Mupirocin 2% Oint [Bactroban 2% 1 applic TOPICAL BID #22 gm 09/08/24 Oint] Allergies Allergy/AdvReac Type Severity Reaction Status Date / Time amoxicillin Allergy Anaphylaxis Verified 12/28/24 20:09 egg Allergy Nausea & Verified 12/28/24 20:09 Vomiting gluten Allergy Unknown Verified 12/28/24 20:09 Latex, Natural Rubber Allergy Anaphylaxis Verified 12/28/24 20:09 Penicillins Allergy Anaphylaxis Verified 12/28/24 20:09 shellfish derived [Shellfish] Allergy Unknown Verified 12/28/24 20:09 sulfamethoxazole Allergy Swelling Verified 12/28/24 20:09 [From Bactrim] trimethoprim [From Bactrim] Allergy Swelling Verified 12/28/24 20:09 vancomycin Allergy Swelling, Verified 12/28/24 20:09 ITCHING acetaminophen [From Vicodin] AdvReac Itching Verified 12/28/24 20:09 hydrocodone [From Vicodin] AdvReac Itching Verified 12/28/24 20:09 Review of Systems ROS Statement: Those systems with pertinent positive or pertinent negative responses have been documented in the HPI. ROS Other: All systems not noted in ROS Statement are negative. Past Medical History Past Medical History: Neurologic Disorder, No Reported History, Skin Disorder Additional Past Medical History / Comment(s): MIGRAINE Headaches. PSORIASIS. History of Any Multi-Drug Resistant Organisms: MRSA, None Reported Date of last positivie culture/infection: 08/08/19 MDRO Source:: Axilla Past Surgical History: Cholecystectomy, No Surgical Hx Reported Additional Past Surgical History / Comment(s): [place] teeth removal. I&D LT GROIN ABSCESS. Past Anesthesia/Blood Transfusion Reactions: Family History of Problems w/ Anesthesia, No Reported Reaction Additional Past Anesthesia/Blood Transfusion Reaction / Comment(s): FATHER AWAKENED DURING SURG Past Psychological History: ADD/ADHD, Anxiety, Depression, No Psychological Hx Reported Smoking Status: Vaper Past Alcohol Use History: None Reported Past Drug Use History: Marijuana - Past Family History Father Family Medical History: Cancer Additional Family Medical History / Comment(s): Father at age 50 from Brain CA with assosiated seizures/stroke. Mother Family Medical History: Hypertension Additional Family Medical History / Comment(s): Mother is alive with history of hypertension, fibromyalgia. Sister(s) Family Medical History: Rheumatoid Arthritis (RA), Thyroid Disorder Additional Family Medical History / Comment(s): Patient has a total of 6 siblings with no major medical problems. Patient does not have any children. Brother(s) History Unknown: Yes General Exam - General Exam Comments Initial Comments: Visual Physical Exam Vital signs reviewed General: Well-appearing, nontoxic, no acute distress. Head: Normocephalic, atraumatic Eyes: PERRLA, EOMI ENT: Airway patent Chest: Nonlabored breathing Skin: No visual rash, normal skin tone Neuro: Alert and oriented 3 Musculoskeletal: No gross abnormalities Limitations: no limitations Course Vital Signs 12/28/24 20:10 Temperature 99.3 F Pulse Rate 96 Respiratory 18 Rate Blood Pressure 100/79 O2 Sat by Pulse 98 Oximetry Medical Decision Making - Medical Decision Making I performed the QuickNote portion of this chart. Signed Kristin Yu PA-C. Patient left AMA from the waiting room prior to full evaluation as well as completion and review of ordered testing. Disposition Clinical Impression: Abdominal pain Disposition: LEFT AGAINST MEDICAL ADVICE Referrals: Eric Garcia MD [Primary Care Provider] - 1-2 days
== END 2024-12-28 21:45 | disposition left against medical advice (07) ==
LOC: EC 19:46
DX: R10.84 Generalized abdominal pain (principal); F17.290 Nicotine dependence, other tobacco product, uncomplicated; Z88.0 Allergy status to penicillin; Z88.1 Allergy status to other antibiotic agents; Z88.2 Allergy status to sulfonamides; Z88.5 Allergy status to narcotic agent; Z91.040 Latex allergy status; Z88.8 Allergy status to other drugs, medicaments and biological substances; Z53.29 Procedure and treatment not carried out because of patient's decision for other reasons
CPT/HCPCS: 99283